=== PATIENT | female | born 1985 | race Caucasian/White ===

== ENCOUNTER 2023-06-10 10:04 | Emergency (ER) | payer OTHER, SELFPAY ==
[2023-06-10 10:11] VITALS: BP 105/73; PULSE 86; RESP 18; TEMP 36.7; O2SAT 96; BMI 25.8
--- NOTE | 2023-06-10 10:17 | PC.NURSE ---
PT STATES WOKE UP THIS MORNING WITH BLOOD ON HER PILLOW FROM RIGHT EAR. PT DENIES PAIN OR LOSS OF HEARING TO RIGHT EAR BUT STATES LEFT EAR HAS A LOT OF PRESSUREE. PT TESTED POSITIVE FOR COVID 5 DAYS AGO
--- NOTE | 2023-06-10 10:31 | ED_ITS ---
HPI - Ear Problem General Chief complaint: Ear Stated complaint: EAR PAIN Time Seen by Provider: 06/10/23 10:31 Source: patient Mode of arrival: walk-in Limitations: no limitations History of Present Illness HPI Narrative: patient here complaining of blood coming out of her right ear. Over the last several days she has not had earache pressure congestion. However five days ago she did test positive for Covid. She didn't get terribly ill but she did have just a slight amount of congestion but no earache or headache. She is afebrile. She's not on any antibiotics. She has not been swimming snorkeling scuba diving. She's not had any recent flights or barotrauma. Otherwise no complaints Related Data Allergies Allergy/AdvReac Type Severity Reaction Status Date / Time No Known Drug Allergies Allergy Verified 06/10/23 10:10 [facility] Social History Smoking status: Never smoker Exam Narrative Exam Narrative: overall examination is normal she's afebrile. Problem focused examination shows her left tympanic membrane be normal in appearance with no dullness or discoloration. At the bottom her right tympanic membrane there is a couple drops of blood and behind the tympanic membrane it sacrad radiation blue-collar consistent with hemotympanum. There is no bullae or obvious perforation. The external canal appears normal. The rest HEENT examination is normal. Airways normal no nasal congestion she has no cough congestion or shortness of breath or pulmonary complaints. Constitutional Vital Signs, click to edit/add: Last Vital Signs Temp 98.1 F 06/10/23 10:11 Pulse 86 06/10/23 10:11 Resp 18 06/10/23 10:11 BP 105/73 06/10/23 10:11 Pulse Ox 96 06/10/23 10:11 O2 Del Method Room Air 06/10/23 10:11 Course Vital Signs Vital signs: Vital Signs Temperature 98.1 F 06/10/23 10:11 Pulse Rate 86 06/10/23 10:11 Respiratory Rate 18 06/10/23 10:11 Blood Pressure 105/73 06/10/23 10:11 Pulse Oximetry 96 06/10/23 10:11 Oxygen Delivery Method Room Air 06/10/23 10:11 Temperature 98.1 F 06/10/23 10:11 Pulse Rate 86 06/10/23 10:11 Respiratory Rate 18 06/10/23 10:11 Blood Pressure 105/73 06/10/23 10:11 Pulse Oximetry 96 06/10/23 10:11 Oxygen Delivery Method Room Air 06/10/23 10:11 Medical Decision Making MDM Narrative Medical decision making narrative: patient was asymptomatic perforation right tympanic membrane status post Covid. She is to keep the ear dry at all times no flying, no swimming or scuba diving. She we placed him on Augmentin for seven days. She's not to clean the ear. She should follow up with ENT in 10-14 days Discharge Plan Discharge Chief Complaint: Ear Clinical Impression: Hematotympanum of right ear Patient Disposition: Home, Self-Care Time of Disposition Decision: 10:34 Additional Instructions: Augmentin for seven days/follow-up with ENT in 10-14 days to recheck the eardrum Stand Alone Forms: Portal Instructions Referrals: Physician,Non-Staff, MD [Primary Care Provider] - 1 week
== END 2023-06-10 10:52 | disposition home or self-care (01) ==
PROVIDERS: Emergency Provider Emergency Medicine Emergency Medical Services; PCP Family Medicine
DX: H73.891 Other specified disorders of tympanic membrane, right ear (principal); Z86.16 Personal history of COVID-19
CPT/HCPCS: 99283

== ENCOUNTER 2023-07-11 15:56 | Outpatient (OUT) | payer OTHER, SELFPAY ==
--- NOTE | 2023-07-11 16:12 | XR_ITS ---
The [address] [address] Patient Name: KAMAR CONDON MRN: [id number] date: 1985 Sex: F Assigned Patient Location: LAB Current Patient Location: Accession/Order Number: [id number] Exam Date: 07/11/2023 16:15 Report Date: 07/12/2023 07:15 At the request of: NATALIE DE ANDA Procedure: XR knee ITZ 3V EXAMINATION: XR knee ITZ 3V HISTORY: arthralgia M25.50 COMPARISON: No relevant comparison available. FINDINGS: RIGHT FINDINGS: BONES: Normal. No significant arthropathy or acute abnormality. SOFT TISSUES: Negative. No visible soft tissue swelling. OTHER: Negative. LEFT FINDINGS: BONES: Normal. No significant arthropathy or acute abnormality. SOFT TISSUES: Negative. No visible soft tissue swelling. OTHER: Negative. XR/XR knee ITZ 3V IMPRESSION: RIGHT CONCLUSION: No acute abnormality LEFT CONCLUSION: No acute abnormality Electronically authenticated by: RAF MITCHELL Date: 07/12/2023 07:15
[2023-07-11 16:22] LABS: Basophils Absolute Auto 0.1 10^3/uL (0.0-0.1); Basophils Percent Auto 0.8 % (0.2-2.0); Eosinophils Absolute Auto 0.2 10^3/uL (0.0-0.7); Eosinophils Percent Auto 2.9 % (0.9-7.0); Hematocrit 39.6 % (36.0-48.0); Hemoglobin 12.9 g/dL (12.0-16.0); Immature Granulocytes Abs Auto 0.01 10^3/uL (0.00-0.03); Immature Granulocytes Pct Auto 0.2 % (0.0-0.5); Lymphocytes Absolute Auto 2.3 10^3/uL (1.2-3.8); Lymphocytes Percent Auto 34.9 % (20.5-60.0); Mean Corpuscular HGB Conc 32.6 g/dL (29.9-35.2); Mean Corpuscular Hemoglobin 31.7 pg (26.7-34.0); Mean Corpuscular Volume 97.3 fL (81.0-99.0); Mean Platelet Volume 10.4 fL (9.5-13.5); Monocytes Absolute Auto 0.5 10^3/uL (0.3-0.8); Monocytes Percent Auto 7.7 % (1.7-12.0); Neutrophils Absolute Auto 3.6 10^3/uL (1.4-6.5); Neutrophils Percent Auto 53.5 % (43.0-75.0); Platelet Count 248 10^3/uL (150-450); Red Blood Count 4.07 10^6/uL (4.20-5.40); Red Cell Distribution Width 11.9 % (11.0-15.0); White Blood Count 6.6 10^3/uL (4.0-11.0)
[2023-07-11 16:25] LABS: Erythrocyte Sedimentation Rate 1 mm/hr (<=20)
[2023-07-11 17:01] LABS: Estimated Average Glucose 91 mg/dL; Glycohemoglobin A1C 4.8 % (4.5-6.2)
[2023-07-11 17:22] LABS: Alanine Aminotransferase 15 U/L (14-59); Albumin Globulin Ratio 1.2; Albumin Level 3.7 g/dL (3.4-5.0); Alkaline Phosphatase 42 U/L (46-116); Anion Gap 11.5; Aspartate Amino Transferase 9 U/L (15-37); BUN Creatinine Ratio 11.6; Bilirubin Total 0.4 mg/dL (0.2-1.0); Calcium 8.5 mg/dL (8.5-10.1); Chloride 105 mmol/L (98-107); Chol HDL Ratio 2.6; Cholesterol 141 mg/dL (<=200); Estimated GFR (African America >60 (>=60); Estimated GFR (Non-African Ame >60 (>=60); Free T3 2.05 pg/mL (2.18-3.98); Globulin 3.2 g/dL; Glucose 114 mg/dL (74-106); HDL Cholesterol 55 mg/dL (40-60); LDL Cholesterol Calculated 75.4 mg/dL; Potassium 3.5 mmol/L (3.5-5.1); Sodium 142 mmol/L (136-145); Total Protein 6.9 g/dL (6.4-8.2); Triglycerides 53 mg/dL (<=150); VLDL CHOLESTEROL 10.6 mg/dL
[2023-07-11 17:32] LABS: C Reactive Protein <0.50 mg/dL (<=0.50)
[2023-07-13 06:08] LABS: Antistreptolysin O Ab 90.6 IU/mL (0.0-200.0); Rheumatoid Factor (RF) <10.0 IU/mL (<14.0)
[2023-07-13 09:09] LABS: Insulin 13.2 uIU/mL (2.6-24.9)
[2023-07-14 16:09] LABS: Antinuclear Antibodies, IFA Positive (.)
== END 2023-07-11 15:57 | disposition home or self-care (01) ==
LOC: LAB 15:58
PROVIDERS: PCP Family Medicine; Visit Provider Family Medicine
DX: Z00.00 Encounter for general adult medical examination without abnormal findings (principal); E78.5 Hyperlipidemia, unspecified; R73.09 Other abnormal glucose; M25.50 Pain in unspecified joint
CPT/HCPCS: 36415; 73562; 80053; 80061; 83036; 83525; 84436; 84443; 84481; 84550; 85025; 85652; 86038; 86060; 86140; 86431

== ENCOUNTER 2023-09-13 17:38 | Emergency (ER) | payer OTHER, SELFPAY ==
[2023-09-13 18:00] VITALS: BP 124/85; PULSE 105; TEMP 36.8; O2SAT 100; BMI 25.0
--- NOTE | 2023-09-13 18:13 | PC.NURSE ---
Swelling naz left cheek, unsure of which tooth is causing it
[2023-09-13] MEDS: BENZOCAINE 30 ML, lidocaine HCL 15 ML MM (18:20)
--- NOTE | 2023-09-13 18:26 | ED.DENTAL1 ---
HPI - Dental/Oral General Chief complaint: Dental/Oral Stated complaint: Dental pain Time Seen by Provider: 09/13/23 18:05 Source: patient Mode of arrival: walk-in Limitations: no limitations History of Present Illness HPI Narrative: Patient is a 38-year-old female who presents to the emergency department for left maxillary swelling she attributes to a dental abscess. Swelling began today. She has had no drainage, fevers or vomiting. She is not concerned for . She does not smoke. No medications taken prior to arrival. Related Data Previous Rx's ?Medication ?Instructions ?Recorded clindamycin HCl 150 mg capsule 300 mg (2 x 150 mg) PO Q6H 10 days 09/13/23 #80 caps ketorolac 10 mg tablet 10 mg PO TID PRN pain #10 tabs 09/13/23 Allergies Allergy/AdvReac Type Severity Reaction Status Date / Time No Known Drug Allergies Allergy Verified 06/10/23 10:10 Review of Systems ROS Constitutional Denies: fever or chills Ears, nose, mouth, and throat Reports: mouth pain; Denies: throat pain or nasal congestion Gastrointestinal Denies: nausea or vomiting Integumentary/Breast Denies: rash Neurological Denies: headache PFSH PFSH Social History Smoking status: Never smoker Exam Narrative Exam Narrative: Gen.: Awake, alert, in no distress Head: Normocephalic, atraumatic ENT: Moist mucous membranes, Left maxillary swelling with no visible dental caries or drainage inside the mouth. Airway widely open and patent. No redness or swelling under the tongue Respiratory: No respiratory distress Cardio: Regular rate and rhythm Extremities: Moves extremities equally Psych: Normal mood and affect Neuro: No focal neuro deficit Skin: Warm, dry, intact Constitutional Vital Signs, click to edit/add: Last Vital Signs Temp 98.2 F 09/13/23 18:00 Pulse 105 H 09/13/23 18:00 Resp 18 09/13/23 18:00 BP 124/85 09/13/23 18:00 Pulse Ox 100 09/13/23 18:00 O2 Del Method Room Air 09/13/23 18:00 Course Vital Signs Vital signs: Vital Signs Temperature 98.2 F 09/13/23 18:00 Pulse Rate 105 H 09/13/23 18:00 Respiratory Rate 18 09/13/23 18:00 Blood Pressure 124/85 09/13/23 18:00 Pulse Oximetry 100 09/13/23 18:00 Oxygen Delivery Method Room Air 09/13/23 18:00 Temperature 98.2 F 09/13/23 18:00 Pulse Rate 105 H 09/13/23 18:00 Respiratory Rate 18 09/13/23 18:00 Blood Pressure 124/85 09/13/23 18:00 Pulse Oximetry 100 09/13/23 18:00 Oxygen Delivery Method Room Air 09/13/23 18:00 MDM - Dental/Oral MDM Narrative Medical decision making narrative: Treated for dental abscess with topical analgesia, clindamycin and NSAIDs for home. Follow-up with PCP and return to the ER if symptoms change or worsen. She states she does have a dentist. Medical Records Attestation: I reviewed the patient's medical records. Discharge Plan Discharge Stand Alone Forms: Portal Instructions Chief Complaint: Dental/Oral Clinical Impression: Dental abscess Patient Disposition: Home, Self-Care Time of Disposition Decision: 18:29 Condition: Good Prescriptions / Home Meds: New clindamycin HCl 150 mg capsule 300 mg PO Q6H 10 Days Qty: 80 0RF ketorolac 10 mg tablet 10 mg PO TID PRN (Reason: pain) Qty: 10 0RF Print Language: Emirati Instructions: Dental Abscess (ED) Additional Instructions: Follow up with your dentist Referrals: Gera Neves MD [Primary Care Provider] - 1 week
== END 2023-09-13 18:50 | disposition home or self-care (01) ==
PROVIDERS: Emergency Provider Emergency Medicine; PCP Family Medicine
DX: K04.7 Periapical abscess without sinus (principal)
CPT/HCPCS: 99283

== ENCOUNTER 2023-10-20 13:42 | Outpatient (OUT) | payer OTHER, SELFPAY ==
--- OUTSIDE RECORDS SUMMARY | 2023-10-20 13:52 | XMS_ITS | CCD ---
Author Organization [facility] ion [facility] Care Team Providers Care Recorder Of Deeds Name Role Phone Gera Neves Primary Care Physician [phone] NEETU, DR ESTRADA Primary Care Unavailable NEETU, DR ESTRADA Admitting Unavailable NEETU, DR ESTRADA Attending Unavailable NEETU, DR ESTRADA Consulting Unavailable PAULA, DR RAF Rooney Consulting Unavailable NEETU, DR ESTRADA Primary Care Unavailable WEST, DR RAF Rooney Admitting Unavailable WEST, DR RAF Rooney Attending Unavailable WEST, DR RAF Rooney Consulting Unavailable NEETU, DR ESTRADA Primary Care Unavailable WEST, DR RAF Rooney Admitting Unavailable WEST, DR RAF Rooney Attending Unavailable NEETU, DR ESTRADA Primary Care Unavailable HANNAH, DR THOMPSON Admitting Unavailable KARCLAUDIA, DR THOMPSON Attending Unavailable HANNAH, DR THOMPSON Consulting Unavailable NEETU, DR ESTRADA Primary Care Unavailable NEETU, DR ESTRADA Admitting Unavailable NEETU, DR ESTRADA Attending Unavailable NEETU, DR ESTRADA Consulting Unavailable MD Gera Neves Primary Care Provider [phone] MD Agustin Kim Attending Provider [phone] Ronald Alcazar Attending Unavailable Ronald Alcazar Admitting Unavailable Gera Neves Primary Care Unavailable Medications Current Medications Medication Drug Class(es) Dates Sig (Normalized) Sig (Original) acetaminophen 325 mg / HYDROcodone bitartrate 5 mg oral tablet (1 source) Opioid Agonist Start: 06-03-2022 take 1 tablet by mouth every six hours Hydrocodone-Acetam inophen Active 1 TAB PO Q6H 40 7 June 03, 2022 24 hr buPROPion hydrochloride 150 mg extended release oral tablet (1 source) Aminoketone Start: 06-03-2022 take 450 mg by mouth once daily Bupropion Hcl Active 450 MG PO Daily June 03, 2022 12:00am citalopram 20 mg oral tablet (1 source) Serotonin Reuptake Inhibitor Start: 04-11-2020 take 1 tablet by mouth once daily CeleXA 20 mg Tab 20 mg = 1 tab(s), Oral, Daily, Refills(s) 0 Start Date: 04/11/20 Status: Ordered dexamethasone 6 mg oral tablet (1 source) Corticosteroid Start: 04-11-2020 take 1 tablet by mouth once daily dexamethasone 6 mg oral tablet 6 mg = 1 tab(s), Oral, Daily, Refills(s) 0 Start Date: 04/11/20 Status: Ordered levoFLOXacin 750 mg oral tablet (1 source) Quinolone Antimicrobial Start: 04-11-2020 take 1 tablet by mouth every twenty-four hours Levaquin 750 mg Tab 750 mg = 1 tab(s), Oral, q24hr, Refills(s) 0 Start Date: 04/11/20 Status: Ordered methocarbamol 500 mg oral tablet (1 source) Muscle Relaxant Start: 05-09-2021 take 2 tablets by mouth four times daily Robaxin 500 mg Tab See Instructions, 2 tab(s) Oral QID 7 day(s), # 14 tab(s), Refills(s) 0 Start Date: 05/09/21 Status: Ordered naproxen 500 mg oral tablet (1 source) Nonsteroidal Anti-inflammatory Drug Start: 05-09-2021 take 1 tablet by mouth twice daily as needed for pain Naprosyn 500 mg Tab 500 mg = 1 tab(s), Oral, BID, PRN for pain, # 20 tab(s), Refills(s) 0 Start Date: 05/09/21 Status: Ordered ondansetron 4 mg oral tablet (1 source) Serotonin-3 Receptor Antagonist Start: 05-09-2021 take 1 tablet by mouth every eight hours as needed for nausea Zofran 4 mg Tab 4 mg = 1 tab(s), Oral, q8hr, PRN Nausea/Vomiting, # 12 tab(s), Refills(s) 0 Start Date: 05/09/21 Status: Ordered rizatriptan 10 mg oral tablet (1 source) Serotonin-1b and Serotonin-1d Receptor Agonist Start: 04-11-2020 take 1 tablet by mouth once daily as needed for headache Maxalt 10 mg Tab 10 mg = 1 tab(s), Oral, Daily, PRN Headache, Refills(s) 0 Start Date: 04/11/20 Status: Ordered traZODone hydrochloride 100 mg oral tablet (1 source) Serotonin Reuptake Inhibitor Start: 06-03-2022 take 100 mg by mouth once daily at bedtime Trazodone Active 100 MG PO Daily at bedtime June 03, 2022 12:00am Problems Active Problems Problem Classification Problem Date Documented Date Episodic/Chronic Coagulation and hemorrhagic disorders (1 source) Spontaneous ecchymoses; Translations: [SPONTANEOUS ECCHYMOSES] Onset: 11-05-2021 Episodic Headache; including migraine (1 source) Migraine 08-10-2013 Chronic Headache; including migraine (1 source) Headache; Translations: [Headache, unspecified] Onset: 09-06-2021 Episodic Immunizations and screening for infectious disease (1 source) Encounter for screening for human papillomavirus (HPV); Translations: [ENC SCREENING HUMAN PAPILLOMAVIRUS] Onset: 08-10-2021 Episodic Malaise and fatigue (4 sources) Other fatigue; Translations: [OTHER FATIGUE] Onset: 10-30-2021 Episodic Other injuries and conditions due to external causes (1 source) Injury of head; Translations: [Unspecified injury of head, initial encounter] Onset: 09-06-2021 Episodic Other screening for suspected conditions (not mental disorders or infectious disease) (4 sources) Encounter for screening for malignant neoplasm of cervix; Translations: [ENC SCREENING MALIG NEOPLASM CERV] Onset: 08-07-2021 Episodic Residual codes; unclassified (1 source) Patient encounter status; Translations: [Encounter for cosmetic surgery] 06-03-2022 Episodic Unclassified (1 source) Pain in right knee; Translations: [Pain in right knee] Onset: 07-28-2023 Past or Other Problems Problem Classification Problem Date Documented Da te Episodic/Chronic Other non-traumatic joint disorders (4 sources) Pain in left hip; Translations: [PAIN IN LEFT HIP] Onset: 12-03-2020 Episodic Results Test Name Value Interpretation Reference Range Facility [facility] Antinuclear Antibodieson 07-28-2023 Antinuclear Abs, IFA Positive Critically abnormal . [facility] Comment on above: Result Comment: Nega tive <1:80 Borderline 1:80 Positive >1:80 Performed By: #### T 4F, CBC, CK, TSH3, ADDONUAPLUS, CRP, ESR, CMP #### [facility] [address] [place] [address] [place] #### ALDOLASE #### [facility] , Homogeneous Pattern 1:320 High . [facility] Comment on above: Result Comment: ICAP nomenclature: [id number] Performed By: #### T 4F, CBC, CK, TSH3, ADDONUAPLUS, CRP, ESR, CMP #### [facility] [address] [place] [address] [place] #### ALDOLASE #### [facility] , Note 1 Normal . [facility] Comment on above: Result Comment: Arline meek Potential Disease Association Homogeneous Systemic Lupus Erythematosus, Drug Induced Systemic Lupus Erythematosus, Chronic Autoimmune hepatitis, Juvenile Idiopathic Arthritis Speckled Sjogren Syndrome, Systemic Lupus Erythematosus, Subacute Cutaneous Lupus, Lupus, Congenital Heart Block, Mixed Connective Tissue Disease, Scleroderma-diffuse, Scleroderma-Autoimmune Myositis Overlap Syndrome, Systemic Lupus Wgbvjhxhfmbph-Mnorhazofsw-Inekrbboym Myositis Overlap Syndrome, Systemic Autoimmune Rheumatic Disease, Undifferentiated Connective Tissue Disease Nucleolar Systemic Sclerosis, Scleroderma-Autoimmune Myositis Overlap Syndrome, Sjogren Syndrome, Raynaud phenomenon, Pulmonary Arterial Hypertension, Systemic Autoimmune Rheumatic Disease, Cancer Centromere Scleroderma-CREST, Limited Cutaneous SSc, Raynaud's Phenomenon, Primary Biliary Cholangitis Nuclear Dot Primary Biliary Cholangitis Nuclear Primary Biliary Cholangitis, Autoimmune Membrane Hepatitis/Liver disease, Systemic Autoimmune Rheumatic Disease, Autoimmune Cytopenias, Linear Scleroderma, Antiphospholipid Syndrome Performed at: [place] [address] Truss Puller Helper: Juan Simmons PhD, Phone: [phone] Performed By: #### T 4F, CBC, CK, TSH3, ADDONUAPLUS, CRP, ESR, CMP #### [address] #### ALDOLASE #### [facility] , Aldolaseon 07-28-2023 Aldolase 4.6 U/L Normal 3.3-10.3 [facility] Comment on above: Result Comment: Perf ormed at: [facility] [place] [address] Truss Puller Helper: Juan Simmons PhD, Phone: [phone] PERFORMED BY: [place] [address] PATHOLOGIST INVASIVE MANAGER RA CORTEZ M.D. Performed By: #### T 4F, CBC, CK, TSH3, ADDONUAPLUS, CRP, ESR, CMP #### [address] #### ALDOLASE #### [facility] , Antithyroglobulin Abon Antithyroglobulin Ab <1.0 Normal 0.0-0.9 [facility] Comment on above: Result Comment: Thyr oglobulin Antibody measured by Karime Erik Methodology It should be noted that the presence of thyroglobulin antibodies may not be pathogenic nor diagnostic, especially at very low levels. The assay veterinary technician has found that four percent of individuals without evidence of thyroid disease or autoimmunity will have positive TgAb levels up to 4 IU/mL. Performed at: [employer] [id number] Truss Puller Helper: Juan Simmons PhD, Phone: [phone] Performed By: #### T 4F, CBC, CK, TSH3, ADDONUAPLUS, CRP, ESR, CMP #### [address] #### ALDOLASE #### [facility] , C-Reactive Proteinon 024 CRP [Mass/Vol] mg/L Normal 0.0-0.5 [facility] Comment on above: Performed By: #### T 4F, CBC, CK, TSH3, ADDONUAPLUS, CRP, ESR, CMP #### [address] #### ALDOLASE #### [facility] , Chromatin Antibodyon 024 Chromatin Antibody <0.2 Normal 0.0-0.9 [facility] Comment on above: Result Comment: Perf ormed at: [facility] [employer] [id number] Truss Puller Helper: Juan Simmons PhD, Phone: [phone] PERFORMED BY: [place] [address] PATHOLOGIST INVASIVE MANAGER RA CORTEZ M.D. Performed By: #### T 4F, CBC, CK, TSH3, ADDONUAPLUS, CRP, ESR, CMP #### [place] [address] [place] #### ALDOLASE #### [facility] , Coagulation Profileon 2023 aPTT Coag (Bld) [Time] 24.4 s Low 25.1-36.5 [facility] Comment on above: Result Comment: A he matocrit value greater than 55% may lead to inaccurate results in coagulation testing. Patients having hematocrit values >55% require a special collection tube for coagulation studies. Please contact the laboratory at [phone] for redraw instructions. PERFORMED BY: [place] [address] PATHOLOGIST INVASIVE MANAGER RA CORTEZ M.D. Performed By: #### T 4F, CBC, CK, TSH3, ADDONUAPLUS, CRP, ESR, CMP #### [address] #### ALDOLASE #### [facility] , INR Coag (PPP) [Relative time] 1.0 {INR} Normal [facility] Comment on above: Result Comment: INR Therapeutic Range A) Pre- and Peroperative OAT started two weeks before surgery. NOT HIP SURGERY: 1.5 - 2.5 HIP SURGERY: 2 - 3 B) Primary and secondary prevention of venous THROMBOSIS: 2 - 3 C) Active venous thrombosis, pulmonary embolism and prevention of recurrent venous thrombosis: 2 - 3 D) Prevention of arterial thromboembolism including patients with mechanical heart valves: 3 - 4.5 Performed By: #### T 4F, CBC, CK, TSH3, ADDONUAPLUS, CRP, ESR, CMP #### [place] [address] [place] #### ALDOLASE #### [facility] , PT Coag (PPP) [Time] 11.1 s Normal 9.0-12.9 [facility] Comment on above: Result Comment: A he matocrit value greater than 55% may lead to inaccurate results in coagulation testing. Patients having hematocrit values >55% require a special collection tube for coagulation studies. Please contact the laboratory at [phone] for redraw instructions. Performed By: #### T 4F, CBC, CK, TSH3, ADDONUAPLUS, CRP, ESR, CMP #### [facility] [address] [place] [address] #### ALDOLASE #### [facility] , Complement C3on 07-28-2023 Complement C3 127 mg/dL Normal 82-167 [facility] Comment on above: Result Comment: Perf ormed at: [place] [id number] Truss Puller Helper: Juan Simmons PhD, Phone: [phone] Performed By: #### T 4F, CBC, CK, TSH3, ADDONUAPLUS, CRP, ESR, CMP #### [facility] [address] [place] [address] #### ALDOLASE #### [facility] , Complement C4on 07-28-2023 Complement C4 29 mg/dL Normal 12-38 [facility] Comment on above: Performed By: #### T 4F, CBC, CK, TSH3, ADDONUAPLUS, CRP, ESR, CMP #### [facility] [address] [place] [address] #### ALDOLASE #### [facility] , Complement Total (CH50)on Complement Total (CH50) 48 Normal >41 [facility] Comment on above: Result Comment: Age Male Female 1 - 30 days Not Estab. Not Estab. 31 days - 6 months >32 >20 7 months - 17 years >39 >39 >17 years >41 >41 NOTE: The adult ( >17 years ) reference interval range is used to flag abnormals on this report. If the patient is 17 years old or younger, use the table above to determine out of range values. Performed at: [address] [id number] Truss Puller Helper: Juan Simmons PhD, Phone: [phone] PERFORMED BY: [place] [address] PATHOLOGIST INVASIVE MANAGER RA CORTEZ M.D. Performed By: #### T 4F, CBC, CK, TSH3, ADDONUAPLUS, CRP, ESR, CMP #### [place] [address] [place] #### ALDOLASE #### [facility] , Complete Blood Count Auto Di ffon 07-28-2023 Basophils (Bld) [#/Vol] 0.0 10*3/uL Normal 0.0-0.2 [facility] Comment on above: Performed By: #### T 4F, CBC, CK, TSH3, ADDONUAPLUS, CRP, ESR, CMP #### [place] [address] [place] #### ALDOLASE #### [facility] , Basophils/100 WBC (Bld) 0.8 % Normal . [facility] Comment on above: Performed By: #### T 4F, CBC, CK, TSH3, ADDONUAPLUS, CRP, ESR, CMP #### [address] #### ALDOLASE #### [facility] , Eosinophils (Bld) [#/Vol] 0.1 10*3/uL Normal 0.0-0.45 [facility] Comment on above: Performed By: #### T 4F, CBC, CK, TSH3, ADDONUAPLUS, CRP, ESR, CMP #### [place] [address] [place] #### ALDOLASE #### [facility] , Eosinophils/100 WBC (Bld) 2.0 % Normal . [facility] Comment on above: Performed By: #### T 4F, CBC, CK, TSH3, ADDONUAPLUS, CRP, ESR, CMP #### [place] [address] [place] #### ALDOLASE #### [facility] , Erythrocyte distribution width (RBC) [Ratio] 12.1 % Normal 11.9-15.3 [facility] Comment on above: Performed By: #### T 4F, CBC, CK, TSH3, ADDONUAPLUS, CRP, ESR, CMP #### [place] [address] [place] #### ALDOLASE #### [facility] , Hematocrit (Bld) [Volume fraction] 39.9 % Normal 34.0-46.4 [facility] Comment on above: Performed By: #### T 4F, CBC, CK, TSH3, ADDONUAPLUS, CRP, ESR, CMP #### [address] #### ALDOLASE #### [facility] , Hemoglobin (Bld) [Mass/Vol] 13.3 g/dL Normal 11.8-15.4 [facility] Comment on above: Performed By: #### T 4F, CBC, CK, TSH3, ADDONUAPLUS, CRP, ESR, CMP #### [address] #### ALDOLASE #### [facility] , Lymphocytes (Bld) [#/Vol] 2.0 10*3/uL Normal 1.00-4.8 [facility] Comment on above: Performed By: #### T 4F, CBC, CK, TSH3, ADDONUAPLUS, CRP, ESR, CMP #### [facility] [address] [place] [address] [place] #### ALDOLASE #### [facility] , Lymphocytes/100 WBC (Bld) 34.0 % Normal . [facility] Comment on above: Performed By: #### T 4F, CBC, CK, TSH3, ADDONUAPLUS, CRP, ESR, CMP #### [place] [address] [place] #### ALDOLASE #### [facility] , MCH (RBC) [Entitic mass] 31.3 pg Normal 24.7-34.3 [facility] Comment on above: Performed By: #### T 4F, CBC, CK, TSH3, ADDONUAPLUS, CRP, ESR, CMP #### [facility] [address] [place] [address] #### ALDOLASE #### [facility] , MCV (RBC) [Entitic vol] 94.0 fL Normal 80-100 [facility] Comment on above: Performed By: #### T 4F, CBC, CK, TSH3, ADDONUAPLUS, CRP, ESR, CMP #### [facility] [address] [place] [address] #### ALDOLASE #### [facility] , Mean Corpuscular HGB Conc 33.3 g/dL Normal 32.0-35.0 [facility] Comment on above: Performed By: #### T 4F, CBC, CK, TSH3, ADDONUAPLUS, CRP, ESR, CMP #### [facility] [address] [place] [address] #### ALDOLASE #### [facility] , Monocytes (Bld) [#/Vol] 0.4 10*3/uL Normal 0.0-0.8 [facility] Comment on above: Performed By: #### T 4F, CBC, CK, TSH3, ADDONUAPLUS, CRP, ESR, CMP #### [facility] [address] [place] [address] #### ALDOLASE #### [facility] , Monocytes/100 WBC (Bld) 6.2 % Normal . [facility] Comment on above: Performed By: #### T 4F, CBC, CK, TSH3, ADDONUAPLUS, CRP, ESR, CMP #### [facility] [address] [place] [address] [place] #### ALDOLASE #### [facility] , Neutrophils (Bld) [#/Vol] 3.3 10*3/uL Normal 1.8-7.7 [facility] Comment on above: Performed By: #### T 4F, CBC, CK, TSH3, ADDONUAPLUS, CRP, ESR, CMP #### [facility] [address] [place] [address] [place] #### ALDOLASE #### [facility] , Neutrophils/100 WBC (Bld) 57.0 % Normal . [facility] Comment on above: Performed By: #### T 4F, CBC, CK, TSH3, ADDONUAPLUS, CRP, ESR, CMP #### [place] [address] [place] #### ALDOLASE #### [facility] , NRBC% 0.1 /100{WBC} Normal 0-0.5 [facility] Comment on above: Performed By: #### T 4F, CBC, CK, TSH3, ADDONUAPLUS, CRP, ESR, CMP #### [place] [address] [place] #### ALDOLASE #### [facility] , Platelet mean volume (Bld) [Entitic vol] 9.1 fL Normal 6.3-10.7 [facility] Comment on above: Performed By: #### T 4F, CBC, CK, TSH3, ADDONUAPLUS, CRP, ESR, CMP #### [address] #### ALDOLASE #### [facility] , Platelets (Bld) [#/Vol] 270 10*3/uL Normal 150-450 [facility] Comment on above: Performed By: #### T 4F, CBC, CK, TSH3, ADDONUAPLUS, CRP, ESR, CMP #### [facility] [address] [place] [address] [place] #### ALDOLASE #### [facility] , RBC (Bld) [#/Vol] 4.25 10*6/uL Normal 3.60-5.00 [facility] Comment on above: Performed By: #### T 4F, CBC, CK, TSH3, ADDONUAPLUS, CRP, ESR, CMP #### [facility] [address] [place] [address] #### ALDOLASE #### [facility] , WBC (Bld) [#/Vol] 5.8 10*3/uL Normal 3.8-11.6 [facility] Comment on above: Performed By: #### T 4F, CBC, CK, TSH3, ADDONUAPLUS, CRP, ESR, CMP #### [facility] [address] [place] [address] #### ALDOLASE #### [facility] , Comprehensive Metabolic Pane ashley 07-28-2023 Albumin [Mass/Vol] 4.8 g/dL Normal 3.5-5.7 [facility] Comment on above: Performed By: #### T 4F, CBC, CK, TSH3, ADDONUAPLUS, CRP, ESR, CMP #### [facility] [address] [place] [address] #### ALDOLASE #### [facility] , Albumin/Globulin [Mass ratio] 1.9 {ratio} Normal [facility] Comment on above: Performed By: #### T 4F, CBC, CK, TSH3, ADDONUAPLUS, CRP, ESR, CMP #### [facility] [address] [place] [address] #### ALDOLASE #### [facility] , ALP [Catalytic activity/Vol] 58 U/L Normal 34-104 [facility] Comment on above: Performed By: #### T 4F, CBC, CK, TSH3, ADDONUAPLUS, CRP, ESR, CMP #### [facility] [address] [place] [address] [place] #### ALDOLASE #### [facility] , ALT [Catalytic activity/Vol] 50 U/L Normal 7-52 [facility] Comment on above: Performed By: #### T 4F, CBC, CK, TSH3, ADDONUAPLUS, CRP, ESR, CMP #### [facility] [address] [place] [address] [place] #### ALDOLASE #### [facility] , Anion gap [Moles/Vol] 9.8 mmol/L Normal 6.0-15.0 [facility] Comment on above: Performed By: #### T 4F, CBC, CK, TSH3, ADDONUAPLUS, CRP, ESR, CMP #### [facility] [address] [place] [address] [place] #### ALDOLASE #### [facility] , AST [Catalytic activity/Vol] 32 U/L Normal 13-39 [facility] Comment on above: Performed By: #### T 4F, CBC, CK, TSH3, ADDONUAPLUS, CRP, ESR, CMP #### [facility] [address] [place] [address] #### ALDOLASE #### [facility] , Bilirubin [Mass/Vol] 0.5 mg/dL Normal 0.3-1.0 [facility] Comment on above: Performed By: #### T 4F, CBC, CK, TSH3, ADDONUAPLUS, CRP, ESR, CMP #### [facility] [address] [place] [address] [place] #### ALDOLASE #### [facility] , Calcium [Mass/Vol] 9.4 mg/dL Normal 8.6-10.3 [facility] Comment on above: Performed By: #### T 4F, CBC, CK, TSH3, ADDONUAPLUS, CRP, ESR, CMP #### [facility] [address] [place] [address] [place] #### ALDOLASE #### [facility] , Chloride [Moles/Vol] 103 mmol/L Normal 98-107 [facility] Comment on above: Performed By: #### T 4F, CBC, CK, TSH3, ADDONUAPLUS, CRP, ESR, CMP #### [facility] [address] [place] [address] [place] #### ALDOLASE #### [facility] , CO2 [Moles/Vol] 27.3 mmol/L Normal 21.0-31.0 [facility] Comment on above: Performed By: #### T 4F, CBC, CK, TSH3, ADDONUAPLUS, CRP, ESR, CMP #### [facility] [address] [place] [address] [place] #### ALDOLASE #### [facility] , Creatinine [Mass/Vol] 0.74 mg/dL Normal 0.60-1.20 [facility] Comment on above: Performed By: #### T 4F, CBC, CK, TSH3, ADDONUAPLUS, CRP, ESR, CMP #### [facility] [address] [place] [address] #### ALDOLASE #### [facility] , GFR/1.73 sq M.predicted MDRD (S/P/Bld) [Vol rate/Area] mL/min/{1.73_m2} [facility] Comment on above: Performed By: #### T 4F, CBC, CK, TSH3, ADDONUAPLUS, CRP, ESR, CMP #### [facility] [address] [place] [address] [place] #### ALDOLASE #### [facility] , Globulin (S) [Mass/Vol] 2.5 g/dL [facility] Comment on above: Performed By: #### T 4F, CBC, CK, TSH3, ADDONUAPLUS, CRP, ESR, CMP #### [facility] [address] [place] [address] [place] #### ALDOLASE #### [facility] , Glucose [Mass/Vol] 81 mg/dL Normal 70-100 [facility] Comment on above: Result Comment: [place] om Glucose Reference Range is dependent on time and content of last meal. Glucose of more than 200 mg/dL in a nonstressed, ambulatory subject supports the diagnosis of Diabetes Mellitus. ADA recommended reference range Performed By: #### T 4F, CBC, CK, TSH3, ADDONUAPLUS, CRP, ESR, CMP #### [facility] [address] [place] [address] #### ALDOLASE #### [facility] , Potassium [Moles/Vol] 4.1 mmol/L Normal 3.5-5.1 [facility] Comment on above: Performed By: #### T 4F, CBC, CK, TSH3, ADDONUAPLUS, CRP, ESR, CMP #### [facility] [address] [place] [address] #### ALDOLASE #### [facility] , Protein [Mass/Vol] 7.3 g/dL Normal 6.4-8.9 [facility] Comment on above: Performed By: #### T 4F, CBC, CK, TSH3, ADDONUAPLUS, CRP, ESR, CMP #### [facility] [address] [place] [address] [place] #### ALDOLASE #### [facility] , Sodium [Moles/Vol] 136 mmol/L Normal 136-145 [facility] Comment on above: Performed By: #### T 4F, CBC, CK, TSH3, ADDONUAPLUS, CRP, ESR, CMP #### [facility] [address] [place] [address] #### ALDOLASE #### [facility] , Urea nitrogen [Mass/Vol] 16 mg/dL Normal 7-25 [facility] Comment on above: Performed By: #### T 4F, CBC, CK, TSH3, ADDONUAPLUS, CRP, ESR, CMP #### [facility] [address] [place] [address] [place] #### ALDOLASE #### [facility] , Creatine Kinaseon 07-28-2023 CK [Catalytic activity/Vol] 69 U/L Normal 30-223 [facility] Comment on above: Result Comment: PERF ORMED BY: [address] [place] [address] PATHOLOGIST INVASIVE MANAGER RA CORTEZ M.D. Performed By: #### T 4F, CBC, CK, TSH3, ADDONUAPLUS, CRP, ESR, CMP #### [address] #### ALDOLASE #### [facility] , Dipstick and Microscopicon 0 07-28-2023 Appearance (U) Clear Normal Clear [facility] Comment on above: Order Comment: Name Collection Type:: Clean-Voided Midstream Performed By: #### T 4F, CBC, CK, TSH3, ADDONUAPLUS, CRP, ESR, CMP #### [address] #### ALDOLASE #### [facility] , Bacteria,Urine None Seen Normal None Seen [facility] Comment on above: Order Comment: Name Collection Type:: Clean-Voided Midstream Performed By: #### T 4F, CBC, CK, TSH3, ADDONUAPLUS, CRP, ESR, CMP #### [address] #### ALDOLASE #### [facility] , Bilirubin,Urine Negative Normal Negative [facility] Comment on above: Order Comment: Name Collection Type:: Clean-Voided Midstream Performed By: #### T 4F, CBC, CK, TSH3, ADDONUAPLUS, CRP, ESR, CMP #### [address] #### ALDOLASE #### [facility] , Color (U) Yellow Normal Yellow [facility] Comment on above: Order Comment: Name Collection Type:: Clean-Voided Midstream Performed By: #### T 4F, CBC, CK, TSH3, ADDONUAPLUS, CRP, ESR, CMP #### [facility] [address] [place] [address] #### ALDOLASE #### [facility] , Glucose Ql (U) Normal Normal Normal [facility] Comment on above: Order Comment: Name Collection Type:: Clean-Voided Midstream Performed By: #### T 4F, CBC, CK, TSH3, ADDONUAPLUS, CRP, ESR, CMP #### [facility] [address] [place] [address] #### ALDOLASE #### [facility] , Hyaline Casts,Urine 0-8 Normal 0-8 [facility] Comment on above: Order Comment: Name Collection Type:: Clean-Voided Midstream Result Comment: PERF ORMED BY: [place] [address] PATHOLOGIST INVASIVE MANAGER RA CORTEZ M.D. Performed By: #### T 4F, CBC, CK, TSH3, ADDONUAPLUS, CRP, ESR, CMP #### [facility] [address] [place] [address] #### ALDOLASE #### [facility] , Ketones Ql (U) Negative Normal Negative [facility] Comment on above: Order Comment: Name Collection Type:: Clean-Voided Midstream Performed By: #### T 4F, CBC, CK, TSH3, ADDONUAPLUS, CRP, ESR, CMP #### [facility] [address] [place] [address] #### ALDOLASE #### [facility] , Leukocyte esterase Test strip Ql (U) Negative Normal Negative [facility] Comment on above: Order Comment: Name Collection Type:: Clean-Voided Midstream Performed By: #### T 4F, CBC, CK, TSH3, ADDONUAPLUS, CRP, ESR, CMP #### [facility] [address] [place] [address] [place] #### ALDOLASE #### [facility] , Nitrite,Urine Negative Normal Negative [facility] Comment on above: Order Comment: Name Collection Type:: Clean-Voided Midstream Performed By: #### T 4F, CBC, CK, TSH3, ADDONUAPLUS, CRP, ESR, CMP #### [facility] [address] [place] [address] #### ALDOLASE #### [facility] , Occult Blood,Urine Negative Normal Negative [facility] Comment on above: Order Comment: Name Collection Type:: Clean-Voided Midstream Performed By: #### T 4F, CBC, CK, TSH3, ADDONUAPLUS, CRP, ESR, CMP #### [address] #### ALDOLASE #### [facility] , pH (U) 7.0 [pH] Normal 5.0-9.0 [facility] Comment on above: Order Comment: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 infection under section 564 (b) (1) of the Act, 21 U.S.C. 360 bbb-3 (b) (1), unless authorization is terminated or revoked sooner. Performed By: #### 2 [id number] ####[facility] [id number] [place] [address] SARS-CoV-2 (COVID-19) RNA MEHREEN+probe Ql (Unsp spec) Pass Normal Pass [facility] Comment on above: Performed By: #### 2 [id number] ####[facility] [id number] [place] [address] Specimen source Nom (Unsp spec) Nasal Normal [facility] Comment on above: Performed By: #### 2 [id number] ####[facility] [address] [place] [address] CT Abdomen/Pelvis w/ Contras ton 05-10-2021 CT Abdomen/Pelvis w/ Contrast Exam Date/Time: 05/09/2021 22:31 EST Reason for Exam: Flank pain, kidney stone suspected;Other (please specify) Report IMPRESSION: NO EVIDENCE OF ACUTE ABDOMINAL OR PELVIC PATHOLOGY. 1.9 CM RIGHT OVARIAN CYST, WITH A DOMINANT LESION VERSUS SUSPECTED. CLINICAL HISTORY: Flank pain, kidney stone suspected. COMMENT: Images were obtained following the administration of Intravenous contrast. The spleen is upper limits of normal size, but otherwise unremarkable. The liver, pancreas, gallbladder, adrenal glands, and kidneys are normal in appearance. The renal collecting systems are not dilated. No retroperitoneal lymphadenopathy is evident. The abdominal aorta is normal. No aneurysm is noted. Evaluation of bowel is limited. The bowel loops are not dilated, and there is no evidence of bowel obstruction. The appendix is unremarkable. There is some fecal material, fluid, and gas in the colon. Most of the colon is collapsed. There is no evidence of diverticulitis. No abdominal inflammatory complex nor free air is noted. The uterus is retroflexed. There is an IUD within the uterine fundus/body centrally. There are follicular ovarian cysts, including a dominant 1.9 cm right ovarian cyst. There is a minimal amount of free fluid in the pelvis. The urinary bladder is unremarkable. No pelvic mass nor pelvic lymphadenopathy is evident. There is grade 1 anterolisthesis at L5-S1, with bilateral L5 pars defects. There is interspace narrowing at L5-S1. All CT scans at this facility use dose modulation, iterative reconstruction, and/or weight based dosing when appropriate to reduce radiation dose to as low as reasonably achievable. FINAL REPORT Dictated: 05/10/2021 11:14 am Brett Choe M.D. Signed (Electronic Signature): 05/10/2021 11:14 am Signed by: Brett Choe M.D. Transcribed by: FOUZIA Technologist: STACIE Technical Comments GFR (mL/min/1/73m2) na Contrast: Isovue 300 Contrast amount in ml's: 100 Normal [facility] Discharge Instructionson Discharge Instructions [id number] CD:127 Normal [facility] ED Clinical Summaryon 2020 ED Clinical Summary (Inserted Image. Ruchi ble to display) [place] [id number] ED Clinical Summary Person Information Name: PAULINE LOPEZ [facility] Age: 35 Years : 1985 Sex: Female Language: Tanzanian PCP: Gera Neves MD Marital Status: Phone: [phone] Visit Id: Visit Reason: Back pain; BACK PAIN Speciality: Acuity: 3 Enc Type: Emergency Med Service: Emergency Arrival: 05/09/2021 20:12:01 Discharge: 05/09/2021 23:47:27 LOS: 000 03:35 Checkin: 05/09/2021 20:12:01 Checkout: 05/09/2021 23:47:27 Dispo Type: Home (Routine DC) EVENTS: Event Name Event Status Request Date/Time Start Date/Time Complete Date/Time Arrive Complete 05/09/2021 20:12:01 05/09/2021 20:12:01 05/09/2021 20:12:01 Document Home Meds Request 05/09/2021 20:12:01 Triage Complete 05/09/2021 20:12:01 05/09/2021 20:32:36 05/09/2021 20:32:36 Registration Complete 05/09/2021 20:14:01 05/09/2021 20:14:01 05/09/2021 20:14:01 Reg Complete Request 05/09/2021 20:14:01 Reg Bed Request Complete 05/09/2021 20:14:01 05/09/2021 20:14:01 05/09/2021 20:14:01 Bed Assign Complete 05/09/2021 20:24:03 05/09/2021 20:24:03 05/09/2021 20:24:03 Dr Exam Complete 05/09/2021 20:24:03 05/09/2021 20:25:24 05/09/2021 20:25:24 RN Exam Complete 05/09/2021 20:24:03 05/09/2021 21:00:48 05/09/2021 21:00:48 Registration Complete 05/09/2021 20:25:24 05/09/2021 20:29:52 05/09/2021 20:29:52 Patient Care Request 05/09/2021 20:32:37 Patient Isolation Request 05/09/2021 20:32:37 Meds Admin Request 05/09/2021 20:43:01 Pending Labs Complete 05/09/2021 20:43:01 05/09/2021 21:45:26 Lab Complete 05/09/2021 20:43:01 05/09/2021 21:45:26 Urine Collect Complete 05/09/2021 20:43:01 05/09/2021 21:45:26 Pending Labs Complete 05/09/2021 20:59:14 05/09/2021 20:59:14 05/09/2021 21:21:54 Lab Complete 05/09/2021 20:59:14 05/09/2021 20:59:14 05/09/2021 21:21:54 Pending Labs Complete 05/09/2021 21:08:32 05/09/2021 21:08:32 05/09/2021 21:08:39 Lab Complete 05/09/2021 21:08:32 05/09/2021 21:08:32 05/09/2021 21:08:39 Pending Labs Collected 05/09/2021 21:32:06 Lab Collected 05/09/2021 21:32:06 Pending Labs Complete 05/09/2021 21:48:10 05/09/2021 21:48:10 05/09/2021 21:48:11 CT Complete 05/09/2021 21:58:29 05/09/2021 22:29:48 05/09/2021 22:31:39 Discharge Complete 05/09/2021 23:04:08 05/09/2021 23:47:40 05/09/2021 23:47:40 Transfer Complete 05/09/2021 23:47:40 05/09/2021 23:47:40 05/09/2021 23:47:40 ADDRESS: [address] [place] [phone] PHYS DOC NOTES: MEDICAL INFORMATION: Prescriptions Given: New Medications Printed Prescriptions methocarbamol (Robaxin 500 mg Tab) 2 tab(s) Oral QID 7 day(s). Refills: 0. naproxen (Naprosyn 500 mg Tab) 1 Tablets By Mouth 2 times a day as needed for pain. Refills: 0. ondansetron (Zofran 4 mg Tab) 1 Tablets By Mouth every 8 hours as needed Nausea/Vomiting. Refills: 0. Medications to Continue with No Changes Other Medications citalopram (CeleXA 20 mg Tab) 1 Tablets By Mouth every day. dexamethasone (dexamethasone 6 mg oral tablet) 1 Tablets By Mouth every day. levofloxacin (Levaquin 750 mg Tab) 1 Tablets By Mouth every 24 hours. rizatriptan (Maxalt 10 mg Tab) 1 Tablets By Mouth every day as needed Headache. PATIENT EDUCATION INFORMATION: Instructions: Back Exercises, Wtzl-cq-Pesu; Acute Back Pain, Adult Follow up: With: Address: When: Gera Neves [address] [place] [address], [address] [place] [phone] Business (1) In 3 days 05/12/2021 DIAGNOSIS: Bilateral back pain Normal [facility] ED Note-Nursingon 05-10-2021 ED Note-Nursing In X-ray Normal [facility] ED Note-Physicianon 05-10-20 ED Note-Physician Basic Information Time Seen: Marcio Woodall DO 05/09/2021 20:25 Chief Complaint Back pain that radiates to abdomen. Nausea History of Present Illness Patient is a 35-year-old female presenting to the ED for evaluation of right-sided flank pain with radiation to her abdomen. Patient states the pain started 3 to 4 days ago, is progressively worsened. States it radiates around and causes nausea. Patient denies fevers, chills, dizziness or lightheadedness, urinary symptoms. Is concerned about possible pyelonephritis. Patient also has been exposed to Covid with her boyfriend and her son both having symptoms. Review of Systems General: Denied fever, chills, weight loss HEENT: Denied Congestion, rhinorrhea, sore throat Cardiac: Denied Chest pain, palpitations, dizziness/lightheadedne ss Respiratory: Denied Dyspnea, cough Abdominal: Denied abdominal pain, vomiting, diarrhea, constipation, + right flank pain, nausea : Denied dysuria, hematuria Extremities: Denied leg swelling, leg pain, calf tenderness Neuro: Denied Focal neurologic deficits, vision changes, difficulty with speech Integumentary: Denied rashes or lesions Physical Exam Vitals & Measurements T: 36.7 ?C(Oral) HR: 83(Peripheral) RR: 16 BP: 126/79 SpO2: 100% HT: 163 cm HT: 163.0 cm WT: 68.1 kg WT: 68.1 kg BMI: 25.63 General: Well developed, non toxic appearing, no acute distress HEENT: Head atraumatic, Mucosa moist, hearing grossly normal Neck: No JVD, tracheal deviation Cardiac: Regular rate, rhythm, no murmurs, or gallops, 2+ radial pulses Respiratory: Lungs clear to auscultation B/L, normal respiratory effort Abdomen: Soft non tender, no rebound or guarding, no peritoneal signs right CVA tenderness percussion, no rashes noted, no abdominal tenderness Extremities: No edema noted in the LE B/L, no tenderness to palpation Neurologic: Alert and oriented, speech clear Skin: No rashes or lesions Psych: Appropriate mood and behavior Medical Decision Making Patient is a 35-year-old female presenting to the ED for evaluation of right flank pain. Patient is nontoxic-appearing on arrival, no acute distress. Laboratory evaluation is obtained, patient is given IV fluids in addition to Toradol. Patient's laboratory evaluations unremarkable, there are crystals in her urine therefore CT of the abdomen pelvis is obtained. CT and pelvis is unremarkable. Patient is feeling improved on exam. She is discharged home with prescription for Naprosyn, Robaxin in addition to Zofran. Follow-up with her primary care doctor next 2 to 3 days. Assessment/Plan Bilateral back pain (M54.9: Dorsalgia, unspecified) Orders: ketorolac, 30 mg = 1 mL, Injection, IV Push, Once, Stop date 05/09/21 20:42:00 EST, STAT, Start date 05/09/21 20:42:00 EST, 05/09/21 20:42:00 EST methocarbamol, See Instructions, 2 tab(s) Oral QID 7 day(s), # 14 tab(s), Refills(s) 0 naproxen, 500 mg = 1 tab(s), Oral, BID, PRN for pain, # 20 tab(s), Refills(s) 0 ondansetron, 4 mg = 1 tab(s), Oral, q8hr, PRN Nausea/Vomiting, # 12 tab(s), Refills(s) 0 Sodium Chloride 0.9% intravenous solution 1,000 mL, 1,000 mL, IV, 983.61 mL/hr, for 30 day(s), Stop date 06/08/21 20:41:00 EST, STAT, Start date 05/09/21 20:42:00 EST, 61 minute(s), Total volume (mL): 1,000, 68.1 kg, 1.76, m2 Automated Diff Beta hCG Qual CBC w/ Auto Diff Comprehensive Metabolic Panel COVID-19 ([facility] CT Abdomen/Pelvis w/ Contrast eGFR Extra Blue Tube UA With Cult Reflex Medications Administered Given Sodium Chloride 0.9% IV Dot 1000 mL 1,000 mL, 1000 mL, IV ketorolac 30 mg/mL Inj 1 mL, 30 mg, IV Push Disposition Plan Discharge Prescription List Prescriptions Naprosyn 500 mg Tab, 500 mg= 1 tab(s), Oral, BID, PRN Robaxin 500 mg Tab, See Instructions Zofran 4 mg Tab, 4 mg= 1 tab(s), Oral, q8hr, PRN Follow-up With When Contact Information Gera Neves In 3 days 05/12/2021 EST [address] [facility] [place] [address] [place] [address]- Business (1) Additional Instructions: Patient Education Back Exercises, Kzbx-qc-Vxjb Acute Back Pain, Adult Problem List/Past Medical History Ongoing No qualifying data Historical Migraine Procedure/Surgical History , x 2. Medications Inpatient ketorolac 30 mg/mL Inj 1 mL, 30 mg= 1 mL, IV Push, Once Sodium Chloride 0.9% IV Dot 1000 mL 1,000 mL, 1000 mL, IV Home CeleXA 20 mg Tab, 20 mg= 1 tab(s), Oral, Daily dexamethasone 6 mg oral tablet, 6 mg= 1 tab(s), Oral, Daily Levaquin 750 mg Tab, 750 mg= 1 tab(s), Oral, q24hr Maxalt 10 mg Tab, 10 mg= 1 tab(s), Oral, Daily, PRN Allergies No Known Allergies Social History Alcohol - Low Risk, 03/16/2015 1-2 times per month, 11/15/2020 Current, Wine, 1-2 times per month, Alcohol use interferes with work or home: No. Drinks more than intended: No. Others hurt by drinking: No. Ready to change: No. Household alcohol concerns: No., 04/11/2020 Current, 01/24/2018 Alcohol use interferes with work o (more content not included)... Normal [facility] Comment on above: Result Comment: Elec tronically Signed By: Marcio Woodall DO\.br\Date and Time Signed: 05/09/21 23:05 EST ED Patient Education Noteon 05-10-2021 ED Patient Education Note Orthopedics Back Exercises These exercises help to make your trunk and back strong. They also help to keep the lower back flexible. Doing these exercises can help to prevent back pain or lessen existing pain. ? If you have back pain, try to do these exercises 2?3 times each day or as told by your doctor. ? As you get better, do the exercises once each day. Repeat the exercises more often as told by your doctor. ? To stop back pain from coming back, do the exercises once each day, or as told by your doctor. Exercises Single knee to chest Do these steps 3?5 times in a row for each le. Lie on your back on a firm bed or the floor with your legs stretched out. 2. Bring one knee to your chest. 3. Grab your knee or thigh with both hands and hold them it in place. 4. Pull on your knee until you feel a gentle stretch in your lower back or buttocks. 5. Keep doing the stretch for 10?30 seconds. 6. Slowly let go of your leg and straighten it. Pelvic tilt Do these steps 5?10 times in a row: 1. Lie on your back on a firm bed or the floor with your legs stretched out. 2. Bend your knees so they point up to the ceiling. Your feet should be flat on the floor. 3. Tighten your lower belly (abdomen) muscles to press your lower back against the floor. This will make your tailbone point up to the ceiling instead of pointing down to your feet or the floor. 4. Stay in this position for 5?10 seconds while you gently tighten your muscles and breathe evenly. Cat?cow Do these steps until your lower back bends more easily: 1. Get on your hands and knees on a firm surface. Keep your hands under your shoulders, and keep your knees under your hips. You may put padding under your knees. 2. Let your head hang down toward your chest. Tighten (contract) the muscles in your belly. Point your tailbone toward the floor so your lower back becomes rounded like the back of a cat. 3. Stay in this position for 5 seconds. 4. Slowly lift your head. Let the muscles of your belly relax. Point your tailbone up toward the ceiling so your back forms a sagging arch like the back of a cow. 5. Stay in this position for 5 seconds. Press-ups Do these steps 5?10 times in a row: 1. Lie on your belly (face-down) on the floor. 2. Place your hands near your head, about shoulder-width apart. 3. While you keep your back relaxed and keep your hips on the floor, slowly straighten your arms to raise the top half of your body and lift your shoulders. Do not use your back muscles. You may change where you place your hands in order to make yourself more comfortable. 4. Stay in this position for 5 seconds. 5. Slowly return to lying flat on the floor. Bridges Do these steps 10 times in a row: 1. Lie on your back on a firm surface. 2. Bend your knees so they point up to the ceiling. Your feet should be flat on the floor. Your arms should be flat at your sides, next to your body. 3. Tighten your butt muscles and lift your butt off the floor until your waist is almost as high as your knees. If you do not feel the muscles working in your butt and the back of your thighs, slide your feet 1?2 inches farther away from your butt. 4. Stay in this position for 3?5 seconds. 5. Slowly lower your butt to the floor, and let your butt muscles relax. If this exercise is too easy, try doing it with your arms crossed over your chest. Belly crunches Do these steps 5?10 times in a row: 1. Lie on your back on a firm bed or the floor with your legs stretched out. 2. Bend your knees so they point up to the ceiling. Your feet should be flat on the floor. 3. Cross your arms over your chest. 4. Tip your chin a little bit toward your chest but do not bend your neck. 5. Tighten your belly muscles and slowly raise your chest just enough to lift your shoulder blades a tiny bit off of the floor. Avoid raising your body higher than that, because it can put too much stress on your low back. 6. Slowly lower your chest and your head to the floor. Back lifts Do these steps 5?10 times in a row: 1. Lie on your belly (face-down) with your arms at your sides, and rest your forehead on the floor. 2. Tighten the muscles in your legs and your butt. 3. Slowly lift your chest off of the floor while you keep your hips on the floor. Keep the back of your head in line with the curve in your back. Look at the floor while you do this. 4. Stay in this position for 3?5 seconds. 5. Slowly lower your chest and your face to the floor. Contact a doctor if: ? Your back pain gets a lot worse when you do an exercise. ? Your back pain does not get better 2 hours after you exercise. If you have any of these problems, stop doing the exercises. Do not do them again unless your doctor says it is okay. Get help right away if: ? You have sudden, very bad back pain. If this happens, stop doing the exerc (more content not included)... Normal [facility] ED Patient Summaryon 021 ED Patient Summary (Inserted Image. Ruchi ble to display) [address] [address] Patient Discharge Instructions Person Information Name: PAULINE LOPEZ Age: 35 Years Arrival Date: 05/09/2021 20:12:01 Discharge Diagnosis: Bilateral back pain Primary Care Physician: Gera Neves MD Provider Information Primary Provider: Marcio Woodall DO Advanced Shot Packer:None The exam and treatment you received in the Emergency Department were for an urgent problem and are not intended as complete care. It is important that you follow up with a doctor, nurse practitioner, or physician?s accounts payable assistant for ongoing care. If your symptoms become worse or you do not improve as expected and you are unable to reach your usual health care provider, you should return to the Emergency Department. We are available 24 hours a day. PAULINE LOPEZ has been given the following list of patient education materials, prescriptions and follow-up instructions: Follow-up Instructions: With: Address: When: Gera Neetu [address] [place] [address], [place] [address] Business (1) In 3 days 05/12/2021 In the event that this physician does not participate in your insurance network, please consult with your insurance company to find a nearby participating provider. Patient Education Materials: Back Exercises, Vrxz-kd-Niwn; Acute Back Pain, Adult A MESSAGE TO ALL PATIENTS REGARDING OPIOIDS PRESCRIPTION OPIOIDS: WHAT YOU NEED TO KNOW Prescription opioids can be used to help relieve xbzuvnxa-eg-xlikrm pain and are often prescribed following a surgery or injury, or for certain health conditions. These medications can be an important part of the treatment but also come with serious risks. It is important to work with your healthcare provider to make sure you are getting the safest, most effective care. WHAT ARE THE RISKS AND SIDE EFFECTS OF OPIOID USE? Prescription opioids carry serious risks of addiction and overdose, especially with prolonged use. An opioid overdose, often marked by slowed breathing, can cause sudden . The use of prescription opioids can have a number of side effects as well, even when taken as directed: ? Tolerance?meaning you might need to take more of the medication for the same pain relief ? Physical dependence?meaning you have symptoms of withdrawal when a medication is stopped ? Increased sensitivity to pain ? Constipation ? Nausea, vomiting, and dry mouth ? Sleepiness and dizziness ? Confusion ? Depression ? Low levels of testosterone that can result in lower sex drive, energy, and strength ? Itching and sweating RISKS ARE GREATER WITH: ? History of drug misuse, substance use disorder, or overdose ? Mental health conditions (such as depression or anxiety) ? Sleep apnea ? Older age (65 years and older) ? Avoid alcohol while taking prescription opioids. Also, unless specifically advised by your health care provider, medications to avoid include: ? Benzodiazepines (such as Xanax or Valium) ? Muscle relaxants (such as Soma or Flexeril) ? Hypnotics (such as Ambien or Lunesta) ? Other prescription opioids KNOW YOUR OPTIONS Talk to your health care provider about ways to manage your pain that don?t involve prescription opioids. Some of these options may actually work better and have fewer risks and side effects. Options may include: ? Pain relievers such as acetaminophen, ibuprofen, and naproxen ? Some medication that are also used for depression or seizures ? Physical therapy and exercise ? Cognitive behavioral therapy, a psychological, goal-directed approach, in which patients learn how to modify physical, behavioral, and emotional triggers of pain and stress. IF YOU ARE PRESCRIBED OPIOIDS FOR PAIN: ? Never take opioids in greater amounts or more often than prescribed. ? Follow up with your primary health care provider. o Work together to create a plan on how to manage your pain. o Talk about ways to help manage your pain that don?t involve prescription opioids. o Talk about any and all concerns and side effects. ? Help prevent misuse and abuse o Never sell or share prescription opioids. o Never use another person?s prescription opioids. ? Store prescription opioids in a secure place and out of reach of others (this may include visitors, children, friends, and family). ? Safely dispose of unused prescription opioids: Find your community drug take-back program or your pharmacy mail-back program, or flush them down the toilet, following guidance from the Food and Drug Administration (www.fda.gov/Drugs/Reso urcesForYou). ? Visit www.cdc.gov/drugoverdos e to learn about the risks of opioids abuse and overdose. ? If you believe you may be struggling with addiction, tell your health healthcare market consultant and ask for guidance or call SAMHSA?S National Helpline at 9-293- (more content not included)... Normal [facility] RAD - Preliminary Cat Scan R eporton 05-10-2021 RAD - Preliminary Cat Scan Report [id number] CD:127 Normal [facility] Auto Diffon 05-09-2021 Basophils/100 WBC (Bld) 0.5 % Normal 0.0-2.0 [facility] Comment on above: Order Comment: Order Added by Discern Expert. Performed By: #### 2 158938, 0449589, 7681800, 46743628, 74362979 ####[facility] [address] [place] [address] Basophils/Leukocytes Auto (Bld) [Pure # fraction] 0.0 E9/L Normal 0.0-0.2 [facility] Comment on above: Order Comment: Order Added by Discern Expert. Performed By: #### 2 588907, 7856502, 6875828, 06968594, 22236877 ####[facility] [address] [place] [address] Eosinophils/100 WBC (Bld) 1.2 % Normal 0.0-8.0 [facility] Comment on above: Order Comment: Order Added by Discern Expert. Performed By: #### 2 906581, 0649865, 2946670, 30436845, 83918584 ####[address] [address] Eosinophils/Leukocyte s Auto (Bld) [Pure # fraction] 0.1 E9/L Normal 0.0-0.5 [facility] Comment on above: Order Comment: Order Added by Discern Expert. Performed By: #### 2 876537, 0083087, 2274033, 58134451, 12487482 ####[address] [address] Lymphocytes/100 WBC (Bld) 22.2 % Normal 14.0-50.0 [facility] Comment on above: Order Comment: Order Added by Discern Expert. Performed By: #### 2 617974, 4327935, 9891998, 77798573, 70749158 ####[facility] [address] [place] [address] Lymphocytes/Leukocyte s Auto (Bld) [Pure # fraction] 1.3 E9/L Normal 1.0-4.0 [facility] Comment on above: Order Comment: Order Added by Discern Expert. Performed By: #### 2 800099, 7907503, 2337342, 03869539, 48007315 ####[address] [place] [address] Monocytes/100 WBC (Bld) 7.9 % Normal 4.0-14.0 [facility] Comment on above: Order Comment: Order Added by Discern Expert. Performed By: #### 2 572873, 3218407, 6963566, 00226066, 80715541 ####[address] [address] Monocytes/Leukocytes Auto (Bld) [Pure # fraction] 0.5 E9/L Normal 0.2-1.0 [facility] Comment on above: Order Comment: Order Added by Discern Expert. Performed By: #### 2 039325, 7833861, 6455375, 88618400, 95878671 ####[address] [address] Neutrophils/100 WBC (Bld) 68.2 % Normal 36.0-75.0 [facility] Comment on above: Order Comment: Order Added by Discern Expert. Performed By: #### 2 011987, 7291672, 2905255, 96527374, 47184318 ####[address] [place] [address] Neutrophils/Leukocyte s Auto (Bld) [Pure # fraction] 4.0 E9/L Normal 2.0-7.5 [facility] Comment on above: Order Comment: Order Added by Discern Expert. Performed By: #### 2 046553, 0142099, 3540083, 19370279, 79537585 ####[facility] [address] [place] [address] [place] [address] B hCG Qualon 05-09-2021 Beta hCG Ql Negative Normal [facility] Comment on above: Performed By: #### 2 893822, 8263755, 4034439, 06726757, 07829663 ####[address] [address] CBC w/ Auto Diffon Erythrocyte distribution width (RBC) [Ratio] 12.2 % Normal 10.9-14.2 [facility] Comment on above: Performed By: #### 2 432764, 3335311, 4416672, 66701195, 87970903 ####[address] [address] Hematocrit (Bld) [Volume fraction] 36.9 % Normal 34.0-46.0 [facility] Comment on above: Performed By: #### 2 956338, 7657064, 5680471, 34949144, 75613041 ####[address] [address] Hemoglobin (Bld) [Mass/Vol] 12.4 g/dL Normal 12.0-16.0 [facility] Comment on above: Performed By: #### 2 426112, 7108448, 0446938, 71997934, 95379744 ####[address] [address] MCH (RBC) [Entitic mass] 31.3 pg Normal 27.0-34.0 [facility] Comment on above: Performed By: #### 2 818746, 1352068, 3800455, 72367054, 81156597 ####[address] [address] MCHC (RBC) [Mass/Vol] 33.7 g/dL Normal 31.4-36.0 [facility] Comment on above: Performed By: #### 2 127644, 0934784, 7693786, 53719493, 79436848 ####[address] [address] MCV (RBC) [Entitic vol] 92.7 fL Normal 80.0-100.0 [facility] Comment on above: Performed By: #### 2 841604, 4227891, 1402644, 75225864, 55212283 ####[address] [place] [address] Platelet mean volume (Bld) [Entitic vol] 9.3 fL Normal 6.4-10.8 [facility] Comment on above: Performed By: #### 2 737407, 3386247, 5375121, 91532031, 69289819 ####[address] [place] [address] Platelets (Bld) [#/Vol] 208.0 E9/L Normal 150.0-500.0 [facility] Comment on above: Performed By: #### 2 475032, 3293208, 0201678, 79697599, 69852469 ####[address] [address] RBC (Bld) [#/Vol] 4.0 E12/L Low 4.3-5.9 [facility] Comment on above: Performed By: #### 2 361173, 2031673, 5846978, 44788263, 10706269 ####[address] [address] WBC corrected for nucl RBC Auto (Bld) [#/Vol] 5.9 E9/L Normal 4.0-11.0 [facility] Comment on above: Performed By: #### 2 418303, 5721457, 1395546, 68684822, 79153365 ####[address] [place] [address] CMPon 05-09-2021 Anion gap [Moles/Vol] 12 mmol/L Normal 6-16 [facility] Comment on above: Performed By: #### 2 213682, 7605807, 3361321, 75683875, 17034025 ####[address] [place] [address] Potassium [Moles/Vol] 3.4 mmol/L Low 3.5-5.3 [facility] Comment on above: Performed By: #### 2 759631, 7116914, 5749575, 38504453, 38879609 ####[address] [place] [address] Albumin [Mass/Vol] 4.0 g/dL Normal 3.3-5.0 [facility] Comment on above: Performed By: #### 2 528959, 9522480, 3576210, 26805471, 98168872 ####[address] [place] [address] Albumin/Globulin (S) [Mass conc ratio] 1.5 Normal 1.1-2.2 [facility] Comment on above: Performed By: #### 2 703068, 4422898, 5661540, 70884596, 14608010 ####[facility] [address] [place] [address] ALP [Catalytic activity/Vol] 40 Int._Unit/L Normal 21-98 [facility] Comment on above: Performed By: #### 2 655083, 1848137, 2530533, 64264483, 74996344 ####[address] [place] [address] ALT No additional P-5'-P [Catalytic activity/Vol] 13 Int._Unit/L Normal 6-46 [facility] Comment on above: Performed By: #### 2 787945, 5385678, 0743876, 32096405, 04872638 ####[address] [place] [address] AST [Catalytic activity/Vol] 16 Int._Unit/L Normal 5-43 [facility] Comment on above: Performed By: #### 2 180066, 3067727, 3703842, 44444766, 06415099 ####[facility] [address] [place] [address] Bilirubin [Mass/Vol] 0.5 mg/dL Normal 0.0-1.1 [facility] Comment on above: Performed By: #### 2 184190, 3637279, 0102313, 33205298, 63800663 ####[facility] [address] [place] [address] Creatinine [Mass/Vol] 0.9 mg/dL Normal 0.5-1.3 [facility] Comment on above: Performed By: #### 2 157397, 0739043, 5411190, 33576252, 74824153 ####[facility] [address] [place] [address] Globulin (S) [Mass/Vol] 2.7 g/dL Normal 1.4-4.0 [facility] Comment on above: Performed By: #### 2 150093, 3253689, 1725635, 64926600, 02855120 ####[facility] [address] [address] Protein [Mass/Vol] 6.7 g/dL Normal 6.0-7.8 [facility] Comment on above: Performed By: #### 2 249403, 6099159, 6952156, 67314819, 93227587 ####[facility] [address] [place] [address] Urea nitrogen [Mass/Vol] 10 mg/dL Normal 5-21 [facility] Comment on above: Performed By: #### 2 740946, 9095796, 0212924, 91666828, 16811683 ####[facility] [address] [place] [address] Urea nitrogen/Creatinine [Mass ratio] 11 No Units Normal 10-20 [facility] Comment on above: Performed By: #### 2 712448, 5149409, 6501268, 67089140, 38375855 ####[facility] [address] [address] Calcium [Mass/Vol] 8.8 mg/dL Low 8.9-11.1 [facility] Comment on above: Performed By: #### 2 876591, 9582214, 9354995, 33907308, 30899007 ####[facility] [address] [place] [address] Chloride [Moles/Vol] 106 mmol/L Normal 101-111 [facility] Comment on above: Performed By: #### 2 424012, 2544336, 5970302, 63671785, 41973230 ####[facility] [address] [place] [address] CO2 [Moles/Vol] 22 mmol/L Normal 21-31 [facility] Comment on above: Performed By: #### 2 825464, 7096241, 2600101, 85683477, 48215248 ####[facility] [address] [place] [address] Glucose [Mass/Vol] 106 mg/dL Normal 55-199 [facility] Comment on above: Result Comment: If t his glucose result represents a fasting glucose, interpretation should refer to the following reference range: 55-99 mg/dL Performed By: #### 2 358689, 3909518, 8391608, 04163964, 72544875 ####[facility] [address] [place] [address] Sodium [Moles/Vol] 137 mmol/L Normal 135-145 [facility] Comment on above: Performed By: #### 2 145392, 2031988, 3668438, 98424241, 19579753 ####[facility] [address] [place] [address] COVID-19 ([facility]on 05-09-2021 Employed in Healthcare NO Normal [facility] Comment on above: Performed By: #### 2 [id number] ####[address] [place] [address] First Test NO Normal [facility] Comment on above: Performed By: #### 2 442157890 ####[address] [address] Hospitalized? NO Normal [facility] Comment on above: Performed By: #### 2 [id number] ####[facility] [address] [place] [address] ICU NO Normal [facility] Comment on above: Performed By: #### 2 150139834 ####[facility] [address] [place] [address] ? NO Normal [facility] Comment on above: Performed By: #### 2 875557466 ####[facility] [address] [place] [address] Resides in a Congregate Care Setting NO Normal [facility] Comment on above: Performed By: #### 2 568382986 ####[facility] [address] [place] [address] Symptomatic as defined by CDC YES Normal [facility] Comment on above: Performed By: #### 2 [id number] ####[facility] [address] [place] [address] Consent for Treatmenton 04-29 Consent for Treatment [id number] D:127 Normal [facility] UA With Cult Reflexon 2020 Bacteria LM Ql (Urine sed) TRACE Normal Trace [facility] Comment on above: Performed By: #### 1 5435364 ####[facility] [address] [place] [address] Bilirubin Ql (U) Negative Normal Negative [facility] Comment on above: Performed By: #### 1 6555900 ####[facility] [address] [place] [address] Clarity (U) SL CLOUDY Invalid Interpretation Code [facility] Comment on above: Performed By: #### 1 1187157 ####[facility] [address] [place] [address] Color (U) YELLOW Normal Yellow [facility] Comment on above: Performed By: #### 1 7557292 ####[facility] [address] [place] [address] Crystals LM Ql (Urine sed) Present Normal [facility] Comment on above: Performed By: #### 1 9013295 ####[address] [address] Epithelial cells.squamous LM.HPF (Urine sed) [#/Area] 0-2 Normal 0-2 [facility] Comment on above: Performed By: #### 1 8362632 ####[address] [address] Glucose Test strip (U) [Mass/Vol] Negative Normal Negative [facility] Comment on above: Performed By: #### 1 7896646 ####[address] [address] Hemoglobin Ql (U) Negative Normal Negative [facility] Comment on above: Performed By: #### 1 7132506 ####[address] [address] Ketones (U) [Mass/Vol] Negative Normal Negative [facility] Comment on above: Performed By: #### 1 3251998 ####[address] [address] [place].plasma/Lithiu m.RBC (Bld) [Mass ratio] 0-3 Normal 0-3 [facility] Comment on above: Performed By: #### 1 2430287 ####[address] [address] Nitrite Ql (U) Negative Normal Negative [facility] Comment on above: Performed By: #### 1 4350953 ####[address] [address] pH (U) 8.0 [pH] Invalid Interpretation Code 5.0-9.0 [facility] Comment on above: Performed By: #### 1 0245211 ####[address] [address] Protein (U) [Mass/Vol] Negative Normal Negative [facility] Comment on above: Performed By: #### 1 4849782 ####[facility] [address] [place] [address] Specific gravity (U) [Rel density] 1.020 Invalid Interpretation Code 1.005-1.030 [facility] Comment on above: Performed By: #### 1 3041922 ####[facility] [address] [place] [address] Type of Urine collection method Clean Catch Normal [facility] Comment on above: Performed By: #### 1 3376738 ####[facility] [address] [place] [address] Urobilinogen Qn (U) 1.0 {Nicole'U}/dL Normal 0.0-1.0 [facility] Comment on above: Performed By: #### 1 5610631 ####[facility] [address] [place] [address] WBC Auto Ql (U) Negative Normal Negative [facility] Comment on above: Performed By: #### 1 9656933 ####[facility] [address] [place] [address] WBC LM.HPF (Urine sed) [#/Area] 0-5 Normal 0-5 [facility] Comment on above: Performed By: #### 1 5483245 ####[facility] [address] [place] [address] eGFRon 05-09-2021 GFR/1.73 sq M.predicted among blacks MDRD (S/P/Bld) [Vol rate/Area] mL/min/{1.73_m2} Normal >=59 [facility] Comment on above: Order Comment: Order added by Discern Expert. Result Comment: eGFR is race adjusted. AA=. Performed By: #### 2 312581, 7580013, 1855472, 38204535, 74276287 ####[facility] [address] [place] [address] GFR/1.73 sq M.predicted among non-blacks MDRD (S/P/Bld) [Vol rate/Area] mL/min/{1.73_m2} Normal >=59 [facility] Comment on above: Order Comment: Order added by Discern Expert. Result Comment: [employer] nabila kidney disease could be indicated at eGFR's of less than 60 mL/min/1.73m2. Kidney failure is indicated at less than 15 mL/min/1.73m2. Performed By: #### 2 374703, 7284984, 2096504, 64744099, 81071331 ####[facility] [address] [place] [address] Coding Summary.on 04-24-2021 Coding Summary. CD:[id number] Gh0 bWw+PGhlYWQ+EZ9ETWKyE63 qxCDtpV9KS3kMBM3IKFUMYS ERIR7GMQ4nzVP8FVcsU6Dvy iAv WjmwmNQsLX17ECu6NNW0eCr cUAtyaJ0rdOUwQ6x1OmOaTS 19mM53IIwbDLBeQyF4DkWgb jsgbWFy Z1olTxWlpJQrWeu+PHRhYmx lIHdpZHRoPScxMDAlJyBzdH rjUD9fVb4eVIIqVOOelOoit HNlOiBj v5dbOBVxNHpxHN9mcEslT5Z mlFF9MBQlg6j4Pm68oUU+PH RdKTQ9qWdqAMsmf224ThTij 2yjDWL3 uVPtTYnkNNI7B66da8G5GGY bVSTfESN4aGB1xZ8vnOcqkk grY2NiyRJfWcV2VCZ7sQTql H6ztMat qtlavK7vHxl+X50JZK1FITY GSS9BYzh3X3IzPoomsPK+PC 84HPXwLE42xYHutAVit4ztg Cp1IdDz LKIpAGE4uEfrVJsgf4TxLBV bF87pmJHmc9W0KNOlsXqugK FuGeCblWE1kJ9mUTbggmqfb 2hvdzsn Kbmnw1nnfs65kJ22O26mNCu oKKZuQHH1ULZxJRMxgHhsfx 0nnP5nHf2+CEjtt5iew7lvy Ai3CfJp LWBwhpRheKwxHCA0m1GtBo6 1K9NsgIenc8NiRet5zf48gY Mvx6I4gDE5OKlwBCLufT8bU WxlZnQ6 HRNxVhZsoE65wVWxGGgiWf7 jmJwseAprDE8qXZRijgaoRM MhoN7dGYRxoTTagDslQW7qK TBpbjtm o454QmPfXUE7EESdkNCgB7T tzD2lRuQgPDPhXMQiB9KelG RwOAemQ479PRrjHeT0ESZph cEwP4Qe TJQhcDzqUjM6t2Z6Gm1Tz6O kpxveUCV9HFqqRUBfUdL5Dr YwHjC7P9SlEnp9AZFbfAnnN P0dH8Wy ITWtzpmfnnhjcFQ6NFLaBNQ gbG22pKXuACiiWw9bh2T9q0 00XMNsIEVnpG52Fe3epVxgF TBwdCBU pY9esxzqc0odoajaHeJoBKA fDEz1LPh5ZVLgpTdySwWaRK Y5SsY9TWP2tONxwR0jmNdxd jvjnD4o Oyc+P32ycN4eSZI7MVO8lbs yKXPcrcAgUH82TX59K7TvDz wvdGFibGU+PGRpdiBzdHlsZ M8vHtUd m5pnl8SsHGjmJ5YqCBBfIPp iQuh9YPLqDOO3wQR7mB1sRU XwLUvls4T6aWX1Y8WtpgYfz z0mb2tv XEOrRPcvC61ftOLer7N3ADQ ehKB1HZSpsMojJwHkqE57Lz c+CTLqcQzym4AnZuvbg8gdc 9heuKe5 CcXwAMPukiKhmUhqPOL7p6G rYh19O94xEDciBQGvYKMyRX SaLGMxaUajix2hvY2zIt2+P GNvbCB3 oVJ0qX9qSXEvNwC6BBddC48 4KkOpjHTkBfixa5adg0sujW y4MhOoZRBuutAkdRcaPEE0l 4UsNj50 O29qYGoiCMBzPRYnAKZsDWW ypWgqdh5srS9kAn5+PC9jb2 ieda05qX48aLU+BUHmQLK8z WxlPSdw WGXtvZ5dCPraWxL6CHFjJpJ oyQ02rACyJHrqFb0uuZmmpM ipOL6fQKMojadcl829YiSuu 2xkIDEw fGGoWOawGHW9A04yc5X1NMD jTJJuIVI3xSP4uB0vhOunzi ogbGVmdDsgdmVydGljYWwtY PwaR330 IHRvcDsnPlBhdGllbnQgTmF jSZv2W7GvKge2IKFepIctAW 0qhFKySYuuGp7kpYglzQwtX I2vPOXx xcgnz696KxEfi5fuOGLxqUM kEJmzONA4Z19nq3W4CXOgPK WoFOW5pAN9wK6rkJxuqvaxn GVmdDsg gmOzjKsdKZsaCDswH263IXR yoIjjYjDjaxDkKOWghUM6BC 22ES45sSNvc5P4fWI8E2YrL GRpbmct mhzrkAT9MQNaQERkfD26Bi0 ymGzoCu2dACKhIYX8DBKmxP BwQ2JybS7pXfQeQEJeBSHdZ 3RleHQt EJyoB613DOmgVgQ4PWNcirI kU9UoSJSzqVjhJgA5g8U5Yf 7ED7E2OX92IR93wZKtp4J3h GC4X3Wo LBVhqmlexcqqzJM9CKCsSDO gxM03Qq8eaLapEd9cHBEqGQ C9NUVwfRJfP9PtqW6oEdYaL DAwMDAw H6MslFFjZWyfV529HJinNrG 6HDPkgoPdE9ItILHhaOtoOt O6c8F0Xb5ZKUs2UR33NF70w MCfz4A8 vJL3S8WnZIHzormdwbbbwDW 1IKVfZLAsyM72In1duGuoYq 5bQBEmSRF8OUZmpUCtA6Nzw D5sKaOf KXRsEEEtI5QhoYXvQAxrG09 7BMltKdI9XRFazpWaZ7YeSU YsxZvoYfV2f8M8Pt9LAIOiX E48IXT5 dPZ1XC49NP89N2VpThaawBQ ibGU+PHRhYmxlIHdpZHRoPS myZUCdTsNezAojAB1nNy0aO GVyLWNv iRqvqQNmRdPpz8abZXQzLPr tIN4huVblO8MhwDV2YZMnj4 a4Ru27F20dR7ZmrCS+PGNvb BJ9jLV6 uP1bJgVzXrB8QAbeE369ElM tzZTbRewtt6lzn5czjTz1He X9XIVwfwJgmDazGVH1z1CoS m52Y99y IHdpZHRoPSIxNSUiIHZhbGl zpu6grB4wVb7+IATyqWM3iV Y4mE7uJdNcNiV4HBiaQ919E nRvcCIv Rddqo0csx9zouKe3MkEtDJC oxjCwxQmiHUQ3e6ViSi92Q1 BwkPckh6FzUbx3ht28uHDmn 0F6dMB2 A2PeZODftfrrhRZgdAnbWP4 uHALsljvxUNQwxT2rYHZxJ0 l6FiXsUvL7WXmgY4XmwkE8R DEwcHQg IGprPNI5H29wn3U5GGSuRKH jSTR9yYM3aA4oeJyswpmjqP VmdDsgdmVydGljYWwtYWxpZ 246IHRv jWgrZBExqX8zSEHepMAyfPb jNG1bJIRfnwirOxAXRVRCPU uBRXqtQOzRXI5SPCRJNF58R E12pDNz u2K6wUW1U3YmUHZwnnkikrr dnGK0DPYyVAEkoO77jJFjYE qnGj5jx5T0j982IWMjQHXet X96Um4s wKzvDOKggPLGhV9rsqrou4n cnqlqJmOfXDHdSVd6MVw7JQ FkaFvzWkQrJRB6GaI0CKI1d AQolB7e pKfzqzrvxB1tTdf+MDMvMTY yAQc5FuayzOX+OVFkMPM7bY faHWtsXFWspL4pLHVtS0q8D iAwLjA1 KQbhN6OkAZMtczyaRi33kQ4 lKaMxMzB3RZyhH3HsxfI1UH KguKHhKRseYJY3R24nz6P1C CMwMDAw LYA6vCW1nN7hyBmnkjmzpOB mdDsgdmVydGljYWwtYWxpZ2 52EIGcuVwpNyW4ERbqJMEhB Y07PO44 pQOel0U7qGW8F5HuOXJzzrk uazftrCZ2VIOnNRPavU75dS AiEWzaHf2jz1N5g879VPRcA DUwaW47 Fb3wePzrMSTytXAQjD4yxhz rb5dctejaVcSfMCEiJWz6SZ x4JOMksEzvBaRcVMT8HgW0H OY6sZUr rO5fyOwqmbkobW9gKqd+RmV eWHtxVM00BK48lAXiu4W5aS A7B9BxVECtyillwcishMJ1H DAuMDUw oJ67zKZsGTzsUh5us5V8z63 6SEQhAPBeuD99Be5gmQifGT PsoQTIdJ9wjbgfc2liqqhiP zAwMDAw CEq0OXm6KRRnwBijRaZhVOW 5QdU9NDH7pRGoxF6ejTrbbf zxbH0dJsl+T7G9lJW0kGGmi DwvdGQ+ KD64iu35W4DmOhedCik8YXX gSIN2aBY7eL9cUGHlKRiyj0 S5mAQ8R0MogkXovk0fu6smF XBzZTog Z89ptHDqj9J6XCHtpRH0ZVE vlNmrSyCyhW14Ipf+PGNvbG cky3UpQkkoo8ful9xqkGy9S jMwJSIg jvUmwMpeDHI3p5SeRl33M31 sIHdpZHRoPSIzMCUiIHZhbG bhiu5idT9vZb9+SIBnzCC3y BS7jM8x QnGwPuC7ORycE715BdFhaSI qGqcoi4zwy3scfZv6IuIoDN WyglLktQdtQZI3a1ZfFx00C 2NvbGdy w4VbEea5vu86yUXgr2Q4cKZ 2D4XlAOYrsyazmTJvrGpzKG 5dVWIpetzdKDDnrW5cZIFvZ 2w9MoUb AjC7PXfgY9AstfM3CZZccOT tEGEiuPSBcV1swkgry8lvvr geOlPiBCHzSYw0LMk7BXAud WduOiBs LDU1OnJ8VSG2uIMuyU6qnIc rknehnA0qWoj+NOb1k9sqfB HiTZ2zpEF2GA30XK17sALhe 9N7mXG1 E5QeNCFmghvkexjflYH4GPQ bEUHmmC17At8jeYkfGc0vOQ RmNWX4IIAteMMpQ5PokV2aU iAjMDAw BMGtC1SunUHfOTgtG513HJv tQoP9GXTrciEuU7UrUJAsnO paTqF9f9O6Ic4FHW15LS39Q Y92nSGb z1P6bBX9F4GuOSRovnqnqwu slOC4DCMiJDAibW49Ka8coU hhWq4qOGZqUPR8DXImrGBfA 5ZqdK6y VxAuUYGbWLLmP0VuwYTjZOr nP105YSrrWnH5DYHwfzUpR9 WyIQEpeHsjDpU2m9T9Bs0LS z60DI47 SG80pSUkt1Q5bII7O3CiGAQ rxkekwibjhGA3ADQwCUOcgR 96Ox6ftIgmAi0yEBCcCQA5L FRpbWVz B8NvlP7dUtYwPXNaGQObY4N lvJAcDFviY575LZciWqO3AD TjpvCkI0CnSEYtrTrzOnC7c 4H6Jr6D USbgddk8Q9DlNsbugUG+PC9 7XUZaGE51jSCrdSKcg0ynhH g5YxQwCFMlLJF6qNhdHVbfx 3JkZXIt Y29s (more content not included)... Normal [facility] MTHFRon 04-08-2021 MTHFR gene targeted mutation analysis [employer] (Bld/Tiss) Comment Invalid Interpretation Code [facility] Comment on above: Result Comment: Resu lt: c.665C>T (p. [id number]), legacy name: [id number] - Not Detected c.1286A>C (p. [id number]), legacy name: [id number] - Not Detected Interpretation: This result is not associated with an increased risk for hyperhomocysteinemia. See Additional Clinical Information and Comments. Additional Clinical Information: Hyperhomocysteinemia is multifactorial involving genetic, clinical, and environmental risk factors. Reduced enzyme activity of methylenetetrahydrofolate reductase (MTHFR) is a genetic risk factor for hyperhomocysteinemia, particularly when serum folate levels are low. There are two common variants in the MTHFR gene that can decrease enzyme activity; c.665C>T (p. [id number]), legacy name [id number], and c.1286A>C (p. [id number]), legacy name [id number]. These variants do not independently increase risk of conditions related to hyperhomocysteinemia in the absence of elevated homocysteine levels. Measurement of total plasma homocysteine is recommended. Patients should share their MTHFR genotype with physicians who are making decisions regarding chemotherapy treatments that depend on folate, such as methotrexate. Guidelines do not recommend genotyping of these two MTHFR variants in the evaluation of venous thrombosis or obstetric risk due to limited evidence of clinical utility (PMID: 45920108). Comments: Genetic Coordinators are available for health care providers to discuss results at [phone] Test Details: Variants Analyzed: c.665C>T (p. [id number]), legacy name: C677T and c.1286A>C (p. [id number]), legacy name: [id number] Methods/Limitations: DNA analysis of the MTHFR gene was performed by PCR amplification followed by restriction enzyme analysis. The diagnostic sensitivity is >99%. Results must be combined with clinical information for the most accurate interpretation. Molecular-based testing is highly accurate, but as in any laboratory test, diagnostic errors may occur. False positive or false negative results may occur for reasons that include genetic variants, blood transfusions, bone marrow transplantation, somatic or tissue-specific mosaicism, mislabeled samples, or erroneous representation of family relationships. This test was developed and its performance characteristics determined by [facility]. It has not been cleared or approved by the Food and Drug Administration. References: Efrem SE, Everett CJ, Chasidy HV. ACMG Practice Guideline: lack of evidence for MTHFR polymorphism testing. Alona Med. 2012;15(2):153-6. doi: 10.1038/gim.2012.165. Epub 2012Jun 01. PMID: 86571492. [place] Of [place] [employer] and Gynec[employer]' Committee on Practice Bulletins-Obstetrics. ACOG Practice Bulletin No. 197: Inherited Thrombophilias in . Obstet Gynecol. 2018 Nov;132(1):e18-e34. doi: 10.1097/AOG.4852219398063600. Erratum in: Obstet Gynecol. 2018 Feb;132(4):1069. PMID: 19202946. More Jiménez, PhD, FACMG Aileen Corea, PhD, FACMG Leobardo Edward, PhD, FACMG Clint Hanson, PhD, FACMG Matheus Duong, PhD, FACMG Apple Kearns, PhD, FACMG Performed at: [facility] [address], [place] [id number] [facility] Melina Beltran Performed By: #### 2 360077, 6064111, 841653900, 69534566, 131644003, 404258275, 9020403 ####[facility] [address] [place] [address] PTH [place] 04-03-2021 Parathyrin.intact [Mass/Vol] 25 pg/mL Invalid Interpretation Code [facility] Comment on above: Result Comment: Perf ormed at: [facility] [address] [id number] PhD Troy Martinez Performed By: #### 1 [id number] #### [facility] Laboratory [address] [place] [address] CMPon 04-02-2021 Albumin [Mass/Vol] 4.4 g/dL Normal 3.3-5.0 [facility] Comment on above: Performed By: #### 2 787526, 1321263, 269902747, 92523841, 372483341, 201744698, 5185574 #### [facility] [address] [place] [address] Albumin/Globulin (S) [Mass conc ratio] 1.4 Normal 1.1-2.2 [facility] Comment on above: Performed By: #### 2 897295, 5000446, 906948941, 64115109, 182736234, 212852766, 3206632 #### [facility] [address] [place] [address] ALP [Catalytic activity/Vol] 41 Int._Unit/L Normal 21-98 [facility] Comment on above: Performed By: #### 2 536028, 2830318, 379839895, 16833192, 238074520, 858772590, 4658040 #### [facility] [address] [place] [address] ALT No additional P-5'-P [Catalytic activity/Vol] 18 Int._Unit/L Normal 6-46 [facility] Comment on above: Performed By: #### 2 651058, 0149382, 398818912, 31338016, 689732073, 898998253, 3359900 #### [facility] [address] [place] [address] Anion gap [Moles/Vol] 11 mmol/L Normal 6-16 [facility] Comment on above: Performed By: #### 2 857458, 4746381, 291834758, 99174960, 362411012, 393761712, 6735369 #### [facility] [address] [place] [address] AST [Catalytic activity/Vol] 19 Int._Unit/L Normal 5-43 [facility] Comment on above: Performed By: #### 2 323297, 8747912, 711142366, 09847224, 577325410, 985745717, 4520570 #### [facility] [address] [place] [address] Bilirubin [Mass/Vol] 0.9 mg/dL Normal 0.0-1.1 [facility] Comment on above: Performed By: #### 2 768181, 8068296, 970705863, 30542593, 903425764, 713187013, 4241832 #### [facility] [address] [place] [address] Calcium [Mass/Vol] 9.2 mg/dL Normal 8.9-11.1 [facility] Comment on above: Performed By: #### 2 810143, 3090685, 172730021, 94237304, 988205685, 947615171, 0303337 #### [facility] [address] [place] [address] Chloride [Moles/Vol] 105 mmol/L Normal 101-111 [facility] Comment on above: Performed By: #### 2 277392, 0774514, 634542703, 08136823, 095957902, 658138434, 4683691 #### [facility] [address] [place] [address] CO2 [Moles/Vol] 22 mmol/L Normal 21-31 [facility] Comment on above: Performed By: #### 2 422036, 5599257, 554241997, 99760791, 174764800, 711292355, 3100956 #### [facility] [address] [place] [address] Creatinine [Mass/Vol] 0.8 mg/dL Normal 0.5-1.3 [facility] Comment on above: Performed By: #### 2 687565, 4754668, 871477933, 74143148, 705674149, 566800757, 3859668 #### [facility] [address] [place] [address] Globulin (S) [Mass/Vol] 3.2 g/dL Normal 1.4-4.0 [facility] Comment on above: Performed By: #### 2 081760, 3759294, 958354318, 73891416, 375206941, 495180384, 7111919 #### [facility] [address] [place] [address] Glucose [Mass/Vol] 82 mg/dL Normal 55-199 [facility] Comment on above: Result Comment: If t his glucose result represents a fasting glucose, interpretation should refer to the following reference range: 55-99 mg/dL Performed By: #### 2 846021, 6295286, 136805683, 58878815, 287593290, 033267503, 5917654 #### [facility] [address] [place] [address] Potassium [Moles/Vol] 3.8 mmol/L Normal 3.5-5.3 [facility] Comment on above: Performed By: #### 2 109513, 8128257, 558394226, 05456083, 380987476, 786788924, 6879369 #### [facility] [address] [place] [address] Protein [Mass/Vol] 7.6 g/dL Normal 6.0-7.8 [facility] Comment on above: Performed By: #### 2 808214, 1252171, 181307707, 81804966, 351227034, 456877889, 2891091 #### [facility] [address] [place] [address] Sodium [Moles/Vol] 134 mmol/L Low 135-145 [facility] Comment on above: Performed By: #### 2 354219, 5031692, 326198416, 20099431, 699548381, 665677707, 0184038 #### [facility] [address] [place] [address] Urea nitrogen [Mass/Vol] 18 mg/dL Normal 5-21 [facility] Comment on above: Performed By: #### 2 059619, 9083289, 067724385, 52804337, 961340953, 051717695, 2583978 #### [facility] [address] [place] [address] Urea nitrogen/Creatinine [Mass ratio] 22 No Units High 10-20 [facility] Comment on above: Performed By: #### 2 600006, 4661611, 279423141, 37539595, 679866491, 248267026, 3242098 #### [facility] [address] [place] [address] Consent for Treatmenton Consent for Treatment [id number]#1.00C D:127 Normal [facility] [id number] 04-02-2021 HbA1c (Bld) [Mass fraction] 4.8 % Normal <=5.9 [facility] Comment on above: Performed By: #### 2 021986, 6639800, 780303890, 73401326, 170951314, 859017265, 2595007 ####[facility] [address] [place] [address] Lipid Panelon 04-02-2021 Cholesterol [Mass/Vol] 175 mg/dL Normal 120-200 [facility] Comment on above: Performed By: #### 2 937054, 8353688, 295936847, 32523695, 178448427, 106403719, 3409382 ####[facility] [address] [place] [address] Cholesterol in HDL [Mass/Vol] 61 mg/dL Invalid Interpretation Code [facility] Comment on above: Result Comment: HDL > or equal to 60 mg/dL: Low cardiovascular risk HDL < 40 mg/dL : High cardiovascular risk Performed By: #### 2 337011, 8816001, 856773702, 46820901, 745093355, 459954053, 0445034 ####[facility] [address] [place] [address] Cholesterol in LDL [Mass/Vol] 95 mg/dL Normal <=129 [facility] Comment on above: Performed By: #### 2 791342, 6274306, 563313222, 41957929, 381129981, 061156414, 6993284 ####[facility] [address] [place] [address] Cholesterol in VLDL [Mass/Vol] 13 mg/dL Normal 7-40 [facility] Comment on above: Performed By: #### 2 750211, 1669718, 521659768, 93707610, 801342743, 488518782, 7817440 ####[facility] [address] [place] [address] Triglyceride [Mass/Vol] 63 mg/dL Normal <=149 [facility] Comment on above: Performed By: #### 2 866141, 8239071, 588560892, 32705548, 264517480, 886593468, 6607354 ####[facility] [address] [place] [address] Phosphoruson 04-02-2021 Phosphate [Mass/Vol] 3.9 mg/dL Normal 1.9-4.6 [facility] Comment on above: Performed By: #### 2 857673, 9326284, 157866371, 80720885, 296501005, 583295769, 4549519 ####[facility] [address] [place] [address] Physician Orderon 04-02-2021 Physician Order [id number]#1.00 CD:127 Normal [facility] Vitamin D 25 Hydroxyon 04-02 25-hydroxyvitamin D3 [Mass/Vol] 45.3 ng/mL Normal 30.0-100.0 [facility] Comment on above: Result Comment: Vit norton D deficiency has been defined as a level of serum 25-OH vitamin D less than 20 ng/mL (1,2) by the [place] of [employer] and an Endocrine Society practice guideline. The Endocrine Society further defined vitamin D insufficiency as a level between 21 and 29 ng/mL (2). 1. IOM ([place] of Medicine). 2010. Dietary reference intakes for calcium and D. [place]: The National Academies Press. 2. Pb MF, Rachel NC, Rebekah-Gordon RAMOS, et al. Evaluation, treatment, and prevention of vitamin D deficiency: an Endocrine Society clinical practice guideline. JCEM. 2010; 96 (7):1911-30. Performed By: #### 2 367918, 3108746, 619874051, 42796679, 442683985, 150416018, 6904920 ####[facility] [address] [place] [address] eGFRon 04-02-2021 GFR/1.73 sq M.predicted among blacks MDRD (S/P/Bld) [Vol rate/Area] mL/min/{1.73_m2} Normal >=59 [facility] Comment on above: Order Comment: Order added by Discern Expert. Result Comment: eGFR is race adjusted. AA=. Performed By: #### 2 132646, 5139371, 713567900, 10333962, 509963656, 285893103, 1050312 #### [facility] [address] [place] [address] GFR/1.73 sq M.predicted among non-blacks MDRD (S/P/Bld) [Vol rate/Area] mL/min/{1.73_m2} Normal >=59 [facility] Comment on above: Order Comment: Order added by Discern Expert. Result Comment: [employer] nabila kidney disease could be indicated at eGFR's of less than 60 mL/min/1.73m2. Kidney failure is indicated at less than 15 mL/min/1.73m2. Performed By: #### 2 434620, 5856756, 570277597, 57912525, 768786529, 653525708, 5242879 #### [facility] [address] [place] [address] Coding Summary.on 11-20-2020 Coding Summary. CD:[id number]:[id number] Gh0 bWw+PGhlYWQ+IC7HQYUfJ64 wqQBknI6MT6rJXW6NFEEKHF SOTI2WAN9jiTO6JAfmB0Qua iAv JvhlqZToLQ18PBc8YEP4gGs wVXidhH9dmYLqP0w6HqLzAA 23xX54MCpeDYRoJwL9ByOvu jsgbWFy R5hxVvIpjIOxDgz+PHRhYmx lIHdpZHRoPScxMDAlJyBzdH zdRL5uKe9xYDIwINQixBnky HNlOiBj y9viZJBkYJzySG4zkYinI7R rfBQ7XRZbg0h4At18aDZ+PH ZzVOY0nXtrPNsuu110HvVed 3ufVXP5 eBNuUYkkCPS7X47zl2G0EBN wSDBlBWC3dCZ7vE4xtVftfr psY5WzpQVuSjQ8GBG5wHAir N2fyVxf qkgxnR7iNwf+A51WSB9WVIH DLK4EHmx6A5JdHhydeGO+PC 50XBIyBY23wAIxzUVag5bam Ua0NlJz URFqCOY0cEdoBYxxt8HgBTH mN76jjTLls6X0AUJszYzayX UaChPoiZL7bM0bWYroohqsf 2hvdzsn Nktxo4emhc88pT74E13bKUx zMLCkJQW5VEOfJLOsrSefcf 6ppE5yWc0+VHdwt2fjo7lei Wl2UeJq HXJsfsTfwTghTUN1f2PfOz3 6U5SmbLnxq5QeIsa0xr85nX Hcf1O7cKK8FFdmAGQcbB6dS WxlZnQ6 VEHxHnBogJ42fKXuYDwgBz4 hbHpvpKxkUJ1wHWFnfaspGL MrfD9pGRRjnLJhgBzxXK7oV TBpbjtm l387YoVsAJT5THQlxYDpW9C psT8tIvKfITXwFVYyM5XfjF XgQElaT706NGdfZbC2JZSbb dOwC2Lu PESjiZmnYvT0a9E5Nh6Sa2T nykbbRYM7VOlnOBT9BhY0So FyXvI6M1XoLlc1XDWprDliO Y5lT8Dm JVActyucfvscqHY6AUCiRCE tiU93zHCrDDwoHw5fm3Y4l0 08WKVtEHIieO85Jg1joEqvI TBwdCBU jA7ovilqm9xeabdjUiLaDFX aWDv4FVj0QHBmaAprIwRjTA P9UpM4IPB3rWSnyQ9geMaod lrmoL7u Oyc+Q26lyC9cHBG5EBG0sdq zZEFhajDvMC50JF85P6QnNs wvdGFibGU+PGRpdiBzdHlsZ O4vClAt y9iwb2QfFAuxY2YtAPPdGWf uAuh7TQUgDTU9aKN8qD6xUZ OrINibe3J9cZX5G7VhxwUeh d3nr6mx OTOaPXzjX24ctTGpb8C9YAQ fqSD9APYmfXerWwByuA27Sh c+BEOheGmvz5OoRchnf1qkc 4mxdRp2 QiYeQBTjhlTgcEbsPUA5t3J aFu41P40kSSnaALVeOJYjFZ CdXFMnjBzmfq8uaM9cHk7+P GNvbCB3 pCN0qU9aXQRzMdZ3VEwbT98 9ZqDkkZIiIdmlb8anc8dovX s4EdTpBYEjonBhlBmtSQI4n 2UrYf17 X03fGEkfZSAzJLClGRUaUWT scBusjy8qeP6rEr2+PC9jb2 yhei48lH54rNS+GXHsQSE9j WxlPSdw VNBodF2aDYzcKiF3YGSkRyT opF80wUMdSPclHe6bsJugmE gbFU8eQMYezapuy446BwVki 2xkIDEw wSVfFQexNUE1K44zj7D5TRY qHKQwIPE3aNM6tI6uhIfyfa ogbGVmdDsgdmVydGljYWwtY WszN435 IHRvcDsnPlBhdGllbnQgTmF qTKb7Z5XrZau8VOKkbNylZJ 1zqIPiAZlvFr4zbZyjyJxlY S0gHDQm zztmb537SdEbu0oeIIDjfCF rCExsNRL1R71ge4N2QMVbDV VaBMT0tOS8iZ5swOvgggyag GVmdDsg lfPrdTeoNKskFRtjE356MFG voHmwDoLpmfGvYVCvfXX9IA 66XY47cKEmp4W9iMV3N6JjU GRpbmct cnbrxSG1UDAoAWSxqN84Ho0 xcGkcHx8zQNAiYDJ3ZLCtrJ OqK2QcuU2hNjHkVTAwVHPbZ 3RleHQt GJqjP411YJyqKuV8EASljcN uG5CiFYNfrHpdBxM0q1Z6Ip 4YV0S5IO86QK56xIQsa5S2x LH6T4Kq HOClxbagyblrpFN0EFEsUEV mtN03Qn6gjObiOs1sOZDjHT G5SKJxnHAaR0JhaQ0aQyTeQ DAwMDAw Z4IcsYPyYXkfR648EOtvBxC 6ZKZebyTiI6WmZRAjpLmlEd A6f7A9Ph8AHPa9VI57EA02j IDuc9K3 oCV6U2AwHMFldlhlgctanXS 6ONNrHQBqjK40Uz3zmTldHb 9wFISzUHQ1SGRhtOIeT3Jvo O4zSsIl BOGbVQUwS9OyhCNlLFeyH47 4UYxxFrB9VDJpyeLeY5GxAN WjhFymFdX6n6L0Ch7TPCBtJ W87YRL5 pOE9NK64HE98V0ZgKgerxWM ibGU+PHRhYmxlIHdpZHRoPS piFLTwVeZynNgjSI0eYw8qX GVyLWNv kUmtfSJcDkUtz1voKPAaHUd hMU4zyUciD0BfzFI3BZCzn7 u6Dp73G02cJ9SsdYG+PGNvb RJ4kYR5 lF4oKxWuJiI4CRfoT034KdV fyPJvGnvfi4vnp3zmvUp5Sq P5BUWojvQypUjuNIA3v2HqM u54K77r IHdpZHRoPSIxNSUiIHZhbGl tio7azT8zKu2+DNNltYE6uS B9lO8cDcEgZbD0NTfqX524R nRvcCIv Hyzqs0xht7vrnOz9SnPtGJV eaeCqvIofJMU9m4ZbXa98A0 DsrGnpp7RnIal2ne37yNQwp 2W0kQH7 Y8JrNXLokiragIBtpCehTV1 dIULviyqbYHXnwU4lEAGhZ2 m6UkQvHiB0HHsbI3MxdgG6W DEwcHQg FLvmOOT7I72ex8S9PEYfYUT rNHR5rET3uW4wsRvrghxqdS VmdDsgdmVydGljYWwtYWxpZ 246IHRv yYwvGIYihH1zWSZvoZFbdTx xBD9aHMUxwnqaRjQWXTKPUV kDEEvmBKyCPB1XURVWPU54S Y60dLYz q1V6iWP1P7AeKRDzbqsiveo wzGR2HKGdFFZsgP42mAGvVG cjUy6wy4P5i846NYYsSEErg V28Wh6s pMvvDPRswZXHlR1oejwjd4l jhtduRkRzOYPrHJy1PBc8YN DewClzLaOdEJF8LnA8BGY8o OVjpH3b vDdkhtvrrW7wNbz+MDMvMTY uCTi3CtxzcBS+FSPpMUL7nW tdQEssEENyyQ9iKLSeN1y2I iAwLjA1 IWnpW8WiZAKehyocTo86kD1 fPoZiBrH1XUguA9LqfuZ8NU IeeLXcCJdcOUK3M21iw2P6Y CMwMDAw FEA5kFF8xZ8anSpfnzmzhCV mdDsgdmVydGljYWwtYWxpZ2 01DPAydTujJxT0JQtzKUBuN I87TY85 qVEis4G2qRP8T5ErVUIutzp xzehbvBL8CEGiIEAqhV63mU JxZQtsNk5gu5V1c612PVNvM DUwaW47 Xt2agKlbQJTzgPIOpM9bnxk pz5ffaenyFiLfIGKlNCx9MW h3GADplCvlJcPtDAE9MqP0Z LM5wLZn kT9xzEybnufweX3yBzs+RmV qNZnjWG84EZ18cLKiq4W7cU W4T9NoYIAxfmdmfudttMF4H DAuMDUw oE31jLNyVYhzPs4us9U6q42 4USLdELQnaH56Zz3oaAnoRS OwhQIAfY1xezgzg4qiykzhN zAwMDAw KRp5KMm8HGHndAifQfKhHMO 8AqU0EOU3cAPhdE1zfRovzx dsvY1tUmb+YZ0logajmtN5W F84XG89 V6FdEeuagWVnqCM+PHRhYmx lIHdpZHRoPScxMDAlJyBzdH iyEW3rKm9kRBDaZDPyrGvdj HNlOiBj z6svQSXkNUvxNW4hwHhdB7U cfZD5HXAdz2n7Pp82I66pK8 JvdXA+KBYbbDC6tDH5eY3gK zAlIiB2 JKxaK641YdIvbTShXzbnp6c bs2dmlNw1QtZzGJQvwwSeqZ cgZGI4x9QgDh74U64iOEnzM HRoPSIy DDIoBUMqqLuvzv2plV7jUo6 +WIOkcEU9eOA3aB8gUeEdQa T7GEdtM841VhNxdLUePtctX 15aJ9In dXA+OYZxVha6ARKpvSvaFP5 uwRXtMBsjJw5eJHA3RuYnOk IdTNscQ6WhQBAapodalvidw NB8CYQq UHUqoV50Kf7atDxgYc5vIYX mKYI3OXFepZKlY5HvbZ2rDb OtTSKaVCAjV2ZukVXbYAjjO 246IGxl YsO9DLTomsTsG7HvSNWplWm qQiT5a6M1Fl9RtOdufAVjDA 3wRsLnYIh1S7LqGpx7JISuz OxuKV2s sCCxMGbpCp8hyDcmhWrfFW6 qMWLmqclfo759YvQtt2ytWD UbyIRiRCtaIIE5W95mb5G4T CMwMDAw POE1sYU1nV9nzJflyshbmPQ mdDsgdmVydGljYWwtYWxpZ2 33OFCgoTffWfYNHqm9V6WeM ty8SGUq yUquBZ0ytYWiRBrmVm2bkWn kaPksQY5oKPGqgcldu903Df Phw1ieMGLgkMQiMYdmHNC7T 22jc1A5 FMZuKTIeWYR1zDL2bQ5cuCm nbjogbGVmdDsgdmVydGljYW qaCRfaN923AKCjuIddPs1QO gs5X8Ws Eat2BRMzoOyzJJ4ocWAtTIi gIa2eeDjoiAkmQS2dOGSvcp mhl640OiAff7gzDKCxcTBcW GltZXM7 M87az3E8JPCsCGCiDIG3oWJ 9vB9ylXtxyrzywWAoeHrayq GivFvwRDeiIPkgN540CZIsm DsnPlBh eWVyOjwvdGQ+ND00pd86C7W zPbqwBwf9XHQdIYA3iXZ0mN 6yWHGtHWxej6P5gLW2K1Hhg qCwbv9s b2xs (more content not included)... Normal [facility] ED Note-Physicianon 11-17-19 ED Note-Physician The radiologist has read the x-ray of the ankle and there is a discrepancy. His reading is as probable punctate mildly displaced avulsion fracture from the lateral malleolus. Soft tissue swelling. The patient has been treated with air splint crutches and Ortho follow-up. The patient was called this morning by me and let know of the discrepancy. She is instructed to make sure that she follows up with orthopedic doctor. I explained to the patient that the treatment is the same as her current treatment and that she needs to follow-up with Ortho. Normal [facility] Comment on above: Result Comment: Elec tronically Signed By: Katlyn Wiseman, Augustus Diehl.ruchi\Date and Time Signed: 11/16/20 09:56 EDT Consent for Treatmenton 10-28 Consent for Treatment [id number]#1.00C D:127 Normal [facility] Discharge Instructionson Discharge Instructions [id number] CD:127 Normal [facility] ED Clinical Summaryon 2020 ED Clinical Summary (Inserted Image. Ruchi ble to display) [place] [id number] ED Clinical Summary Person Information Name: PAULINE LOPEZ/[place] Age: 35 Years : 1985 Sex: Female Language: Tanzanian PCP: Gera Neves MD Marital Status: Phone: [phone] MRN: Visit Id: Visit Reason: Ankle pain-swelling; LEFT ANKLE Speciality: Acuity: 4 Enc Type: Emergency Med Service: Emergency Arrival: 11/15/2020 01:00:57 Discharge: 11/15/2020 02:25:43 LOS: 000 01:25 Checkin: 11/15/2020 01:00:57 Checkout: 11/15/2020 02:25:43 Dispo Type: Home (Routine DC) EVENTS: Event Name Event Status Request Date/Time Start Date/Time Complete Date/Time Arrive Complete 11/15/2020 01:00:57 11/15/2020 01:00:57 11/15/2020 01:00:57 Document Home Meds Request 11/15/2020 01:00:57 Triage Complete 11/15/2020 01:00:57 11/15/2020 01:16:56 11/15/2020 01:16:56 Bed Assign Complete 11/15/2020 01:14:37 11/15/2020 01:14:37 11/15/2020 01:14:37 Dr Exam Complete 11/15/2020 01:14:37 11/15/2020 01:14:50 11/15/2020 01:14:50 RN Exam Complete 11/15/2020 01:14:37 11/15/2020 02:03:54 11/15/2020 02:03:54 Registration Complete 11/15/2020 01:14:50 11/15/2020 01:20:18 11/15/2020 01:20:18 X-Ray Complete 11/15/2020 01:17:28 11/15/2020 01:31:07 11/15/2020 01:46:18 X-Ray Complete 11/15/2020 01:19:00 11/15/2020 01:31:07 11/15/2020 01:46:18 Reg Complete Request 11/15/2020 01:20:18 Reg Bed Request Complete 11/15/2020 01:20:18 11/15/2020 01:20:18 11/15/2020 01:20:18 Patient Care Complete 11/15/2020 01:45:53 11/15/2020 02:11:08 Wet Read Request 11/15/2020 01:46:18 Discharge Complete 11/15/2020 01:54:16 11/15/2020 02:25:49 11/15/2020 02:25:49 Patient Care Request 11/15/2020 01:56:37 Transfer Complete 11/15/2020 01:56:37 11/15/2020 02:25:49 11/15/2020 02:25:49 Meds Admin Cancel 11/15/2020 02:00:00 11/15/2020 02:10:22 Meds Admin Complete 11/15/2020 02:09:29 11/15/2020 02:12:02 Meds Admin Complete 11/15/2020 02:20:14 11/15/2020 02:23:58 ADDRESS: [address] [place] [phone] PHYS DOC NOTES: MEDICAL INFORMATION: Prescriptions Given: Medications to Continue with No Changes Other Medications citalopram (CeleXA 20 mg Tab) 1 Tablets By Mouth every day. dexamethasone (dexamethasone 6 mg oral tablet) 1 Tablets By Mouth every day. levofloxacin (Levaquin 750 mg Tab) 1 Tablets By Mouth every 24 hours. rizatriptan (Maxalt 10 mg Tab) 1 Tablets By Mouth every day as needed Headache. PATIENT EDUCATION INFORMATION: Instructions: Ankle Sprain Follow up: With: Address: When: Eulogio Ashley [address] [place], [place] [id number] [facility] () Within 1 to 2 days Comments: Patient is advised to follow-up with orthopedic surgery on Tuesday morning. She is also advised to come back to the emergency department if the symptoms get worse. With: Address: When: Gera Neves [address] [facility], [place] [address] Business (1) In 3 days DIAGNOSIS: 1:Ankle sprain Normal [facility] ED Note-Physicianon 11-16-19 ED Note-Physician Basic Information Time Seen: Sergio YADAV, Torrey 11/15/2020 01:14 Chief Complaint states stumbled down two steps tonight. pain to left ankle. swelling and abrasion noted. unable to bear weight. History of Present Illness Came to the emergency department after she twisted her left ankle while she was drunk. Patient is unable to ambulate on that. Patient is complaining of 6-7 out of 10 pain. Gets better with rest and worse with walking on that. Review of Systems A 10 point review of systems is negative except as noted above. Medical and Surgical History: Reviewed and noted Social history: Lives at home Tobacco: Denies Physical Exam Vitals & Measurements T: 36.8 ?C (Oral) HR: 105(Peripheral) RR: 20 BP: 118/84 SpO2: 98% HT: 162.0 cm HT: 162 cm WT: 65.9 kg WT: 65.9 kg BMI: 25.11 General: alert, no acute distress Skin: warm, dry Head: no trauma, normocephalic Neck: Trachea midline, no adenopathy, no tenderness Eye: normal conjunctiva, sclera clear ENMT: TM's clear, oral mucosa moist, no pharyngeal erythema or exudate Cardiovascular: regular rate and rhythm, normal peripheral perfusion Capillary refill Less than 1 second Respiratory: Lungs CTA, respirations non labored Chest wall: no deformity. Gastrointestinal: soft, non distended, no tenderness, no guarding bowel sounds normal.Hepatosplenomega ly negative Genitourinary Normal Back: No tenderness, Normal ROM, Normal alignment. Extremities: Left ankle swelling and tenderness Neurological: oriented x 4, LOC appropriate for age, CN II-XII intact, motor strength equal & normal bilaterally, sensation equal & normal bilaterally, speech normal Psychiatric: cooperative, affect appropriate for age, normal judgement, normal psychiatric thoughts. Medical Decision Making Patient x-rays negative for any fracture. Patient will be given Aircast splint with crutches. She is advised to follow-up with her primary care physician. Patient is also advised to come back to the emergency department if the symptoms get worse. Assessment/Plan 1. Ankle sprain (S93.409A: Sprain of unspecified ligament of unspecified ankle, initial encounter) Orders: Air Cast Crutches XR Ankle 3+ Views Left XR Tib/Fib Left 2 View Disposition Plan Patient Discharge Condition Stable Discharge Disposition Home Discharge Prescription List Prescriptions No active prescription medications Follow-up With When Contact Information Eulogio Ashley Within 1 to 2 days [address] [place] [address]- Business (1) Additional Instructions: Patient is advised to follow-up with orthopedic surgery on Tuesday morning. She is also advised to come back to the emergency department if the symptoms get worse. Gera Neves In 3 days [address] [place] [address]- Business (1) Additional Instructions: Patient Education Ankle Sprain Problem List/Past Medical History Ongoing No qualifying data Historical Migraine Procedure/Surgical History , x 2. Medications Inpatient No active inpatient medications Home CeleXA 20 mg Tab, 20 mg= 1 tab(s), Oral, Daily dexamethasone 6 mg oral tablet, 6 mg= 1 tab(s), Oral, Daily Levaquin 750 mg Tab, 750 mg= 1 tab(s), Oral, q24hr Maxalt 10 mg Tab, 10 mg= 1 tab(s), Oral, Daily, PRN Allergies No Known Allergies Social History Alcohol - Low Risk, 03/16/2015 Current, Wine, 1-2 times per month, Alcohol use interferes with work or home: No. Drinks more than intended: No. Others hurt by drinking: No. Ready to change: No. Household alcohol concerns: No., 04/11/2020 Current, 01/24/2018 Alcohol use interferes with work or home: No., 09/20/2017 Current, Beer, 1-2 times per month, 07/12/2015 Substance Abuse - Denies Substance Abuse, 05/03/2013 Current, 04/11/2020 Current, 01/24/2018 Tobacco - Denies Tobacco Use, 05/03/2013 Lab Results No qualifying data available. Diagnostic Results No qualifying data available. [facility] Comment on above: Result Comment: Chavez chow Signed By: Sergio YADAV, Torrey\.br\Date and Time Signed: 11/15/20 01:55 EDT ED Patient Education Noteon 11-15-2020 ED Patient Education Note Orthopedics Ankle Sprain An ankle sprain is a stretch or tear in a ligament in the ankle. Ligaments are tissues that connect bones to each other. The two most common types of ankle sprains are: ? Inversion sprain. This happens when the foot turns inward and the ankle rolls outward. It affects the ligament on the outside of the foot (lateral ligament). ? Eversion sprain. This happens when the foot turns outward and the ankle rolls inward. It affects the ligament on the inner side of the foot (medial ligament). What are the causes? This condition is often caused by accidentally rolling or twisting the ankle. What increases the risk? You are more likely to develop this condition if you play sports. What are the signs or symptoms? Symptoms of this condition include: ? Pain in your ankle. ? Swelling. ? Bruising. This may develop right after you sprain your ankle or 1?2 days later. ? Trouble standing or walking, especially when you turn or change directions. How is this diagnosed? This condition is diagnosed with: ? A physical exam. During the exam, your health care provider will press on certain parts of your foot and ankle and try to move them in certain ways. ? X-ray imaging. These may be taken to see how severe the sprain is and to check for broken bones. How is this treated? This condition may be treated with: ? A brace or splint. This is used to keep the ankle from moving until it heals. ? An elastic bandage. This is used to support the ankle. ? Crutches. ? Pain medicine. ? Surgery. This may be needed if the sprain is severe. ? Physical therapy. This may help to improve the range of motion in the ankle. Follow these instructions at home: If you have a brace or a splint: ? Wear the brace or splint as told by your health care provider. Remove it only as told by your health care provider. ? Loosen the brace or splint if your toes tingle, become numb, or turn cold and blue. ? Keep the brace or splint clean. ? If the brace or splint is not waterproof: ? Do not let it get wet. ? Cover it with a watertight covering when you take a bath or a shower. If you have an elastic bandage (dressing): ? Remove it to shower or bathe. ? Try not to move your ankle much, but wiggle your toes from time to time. This helps to prevent swelling. ? Adjust the dressing to make it more comfortable if it feels too tight. ? Loosen the dressing if you have numbness or tingling in your foot, or if your foot becomes cold and blue. Managing pain, stiffness, and swelling ? Take ejnn-ifm-qmffiaw and prescription medicines only as told by your health care provider. ? For 2?3 days, keep your ankle raised (elevated) above the level of your heart as much as possible. ? If directed, put ice on the injured area: ? If you have a removable brace or splint, remove it as told by your health care provider. ? Put ice in a plastic bag. ? Place a towel between your skin and the bag. ? Leave the ice on for 20 minutes, 2?3 times a day. General instructions ? Rest your ankle. ? Do not use the injured limb to support your body weight until your health care provider says that you can. Use crutches as told by your health care provider. ? Do not use any products that contain nicotine or tobacco, such as cigarettes, e-cigarettes, and chewing tobacco. If you need help quitting, ask your health care provider. ? Keep all follow-up visits as told by your health care provider. This is important. Contact a health care provider if: ? You have rapidly increasing bruising or swelling. ? Your pain is not relieved with medicine. Get help right away if: ? Your foot or toes become numb or blue. ? You have severe pain that gets worse. Summary ? An ankle sprain is a stretch or tear in a ligament in the ankle. Ligaments are tissues that connect bones to each other. ? This condition is often caused by accidentally rolling or twisting the ankle. ? Symptoms include pain, swelling, bruising, and trouble walking. ? To relieve pain and swelling, put ice on the affected ankle, raise your ankle above the level of your heart, and use an elastic bandage. ? Keep all follow-up visits as told by your health care provider. This is important. This information is not intended to replace advice given to you by your health care provider. Make sure you discuss any questions you have with your health care provider. Document Released: 05/16/2006 Document Revised: 02/05/2019 Document Reviewed: 10/10/2018 Elsevier Patient Education ? 2019 Get10. [facility] ED Patient Summaryon 021 ED Patient Summary (Inserted Image. Ruchi ble to display) [address] [address] Patient Discharge Instructions Person Information Name: PAULINE LOPEZ Age: 35 Years Arrival Date: 11/15/2020 01:00:57 Discharge Diagnosis: 1:Ankle sprain Primary Care Physician: Gera Neves MD Provider Information Primary Provider: Sergio YADAV, Torrey Advanced Shot Packer:None The exam and treatment you received in the Emergency Department were for an urgent problem and are not intended as complete care. It is important that you follow up with a doctor, nurse practitioner, or physician?s accounts payable assistant for ongoing care. If your symptoms become worse or you do not improve as expected and you are unable to reach your usual health care provider, you should return to the Emergency Department. We are available 24 hours a day. PAULINE LOPEZ has been given the following list of patient education materials, prescriptions and follow-up instructions: Follow-up Instructions: With: Address: When: [address] [place] [address] Business (1) Within 1 to 2 days Comments: Patient is advised to follow-up with orthopedic surgery on Tuesday morning. She is also advised to come back to the emergency department if the symptoms get worse. With: Address: When: Gera Neves [address] [facility], [facility] [place] [address] Business (1) In 3 days In the event that this physician does not participate in your insurance network, please consult with your insurance company to find a nearby participating provider. Patient Education Materials: Ankle Sprain A MESSAGE TO ALL PATIENTS REGARDING OPIOIDS PRESCRIPTION OPIOIDS: WHAT YOU NEED TO KNOW Prescription opioids can be used to help relieve orfqbwuk-hf-zthldj pain and are often prescribed following a surgery or injury, or for certain health conditions. These medications can be an important part of the treatment but also come with serious risks. It is important to work with your healthcare provider to make sure you are getting the safest, most effective care. WHAT ARE THE RISKS AND SIDE EFFECTS OF OPIOID USE? Prescription opioids carry serious risks of addiction and overdose, especially with prolonged use. An opioid overdose, often marked by slowed breathing, can cause sudden . The use of prescription opioids can have a number of side effects as well, even when taken as directed: ? Tolerance?meaning you might need to take more of the medication for the same pain relief ? Physical dependence?meaning you have symptoms of withdrawal when a medication is stopped ? Increased sensitivity to pain ? Constipation ? Nausea, vomiting, and dry mouth ? Sleepiness and dizziness ? Confusion ? Depression ? Low levels of testosterone that can result in lower sex drive, energy, and strength ? Itching and sweating RISKS ARE GREATER WITH: ? History of drug misuse, substance use disorder, or overdose ? Mental health conditions (such as depression or anxiety) ? Sleep apnea ? Older age (65 years and older) ? Avoid alcohol while taking prescription opioids. Also, unless specifically advised by your health care provider, medications to avoid include: ? Benzodiazepines (such as Xanax or Valium) ? Muscle relaxants (such as Soma or Flexeril) ? Hypnotics (such as Ambien or Lunesta) ? Other prescription opioids KNOW YOUR OPTIONS Talk to your health care provider about ways to manage your pain that don?t involve prescription opioids. Some of these options may actually work better and have fewer risks and side effects. Options may include: ? Pain relievers such as acetaminophen, ibuprofen, and naproxen ? Some medication that are also used for depression or seizures ? Physical therapy and exercise ? Cognitive behavioral therapy, a psychological, goal-directed approach, in which patients learn how to modify physical, behavioral, and emotional triggers of pain and stress. IF YOU ARE PRESCRIBED OPIOIDS FOR PAIN: ? Never take opioids in greater amounts or more often than prescribed. ? Follow up with your primary health care provider. o Work together to create a plan on how to manage your pain. o Talk about ways to help manage your pain that don?t involve prescription opioids. o Talk about any and all concerns and side effects. ? Help prevent misuse and abuse o Never sell or share prescription opioids. o Never use another person?s prescription opioids. ? Store prescription opioids in a secure place and out of reach of others (this may include visitors, children, friends, and family). ? Safely dispose of unused prescription opioids: Find your community drug take-back program or your pharmacy mail-back program, or flush them down the toilet, following guidance from the Food and Drug Administration (www.fda.gov/Drugs/Reso urcesForYou). ? Vi (more content not included)... [facility] Vaccinationson 11-15-2020 Vaccinations [id number] CD:127 [facility] XR Ankle 3+ Views Lefton XR Ankle 3+ Views Left Exam Date/Time: 11/15/2020 01:46 EDT Reason for Exam: Pain Report IMPRESSION: PROBABLE PUNCTATE MILDLY DISPLACED AVULSION FRACTURE FROM THE LATERAL MALLEOLUS. SOFT TISSUE SWELLING. EXAM: XR Ankle 3+ Views Left, XR Tib/Fib Left 2 View DATE: 11/15/2020 CLINICAL HISTORY: Pain and swelling after falling down stairs. COMPARISON: None available. TECHNIQUE: AP, mediolateral, medial and external oblique radiographs of the left ankle, and AP and lateral radiographs of the left tibia and fibula were obtained. FINDINGS: Soft tissue swelling is noted, predominantly of the lateral ankle. An approximately 1 to 2 mm calcification adjacent to the lateral malleolus is probably a very small mildly displaced avulsion fracture. There is no other fracture, dislocation, worrisome bone destruction, radiodense foreign bodies, or significant degenerative changes. The visualized joint spaces and ankle mortise are intact. FINAL REPORT Dictated: 11/15/2020 5:02 am Ricky Hidalgo MD Signed (Electronic Signature): 11/15/2020 5:02 am Signed by: Ricky Hidalgo MD Transcribed by: FOUZIA Technologist: TOMMY Lopez Read 11/15/2020 05:02 am EDT, Ricky Hidalgo MD, DISAGREE PROBABLE PUNCTATE MILDLY DISPLACED AVULSION FRACTURE FROM THE LATERAL MALLEOLUS. [facility] XR Tib/Fib Left 2 Viewon XR Tib/Fib Left 2 View Exam Date/Time: 11/15/2020 01:46 EDT Reason for Exam: Pain, Traumatic Report PLEASE SEE XR Ankle 3+ Views Left REPORT DATED: 11/15/2020. FINAL REPORT Dictated: 11/15/2020 5:01 am Ricky Hidalgo MD Signed (Electronic Signature): 11/15/2020 5:01 am Signed by: Ricky Hidalgo MD Transcribed by: FOUZIA Technologist: TOMMY Lopez Read 11/15/2020 05:02 am EDT, Ricky Hidalgo MD, DISAGREE PROBABLE PUNCTATE MILDLY DISPLACED AVULSION FRACTURE FROM THE LATERAL MALLEOLUS. [facility] Vital Signs Date Time Vital Sign Value Performing Clinician Facility 06-03-2022 15:08-0500 Diastolic blood pressure 63 mm[Hg] MD Gera Neves Work Phone: [facility] 06-03-2022 15:08-0500 Heart rate 63 /min MD Gera Neves Work Phone: [facility] 06-03-2022 15:08-0500 Respiratory rate 16 /min MD Gera Neves Work Phone: [facility] 06-03-2022 15:08-0500 SaO2% (BldA) [Mass fraction] 99 % MD Gera Neves Work Phone: [facility] 06-03-2022 15:08-0500 Systolic blood pressure 107 mm[Hg] MD Gera Neves Work Phone: [facility] 06-03-2022 13:46-0500 Body temperature 97.2 [degF] MD Gera Neves Work Phone: [facility] 06-03-2022 13:16-0500 Inhaled oxygen flow rate 8 L/min MD Gera Neves Work Phone: [facility] 06-03-2022 07:23-0500 Body height 165.1 cm MD Gera Neves Work Phone: [facility] 06-03-2022 07:23-0500 Body mass index (BMI) [Ratio] 27.9 kg/m2 MD Gera Neves Work Phone: [facility] 06-03-2022 07:23-0500 Body weight 76.2 kg MD Gera Neves Work Phone: [facility] 09-06-2021 16:23-0400 Diastolic blood pressure 77 mm[Hg] [facility] 09-06-2021 16:23-0400 Heart rate 88 /min [facility] 09-06-2021 16:23-0400 Mean blood pressure 89 mm[Hg] [facility] 09-06-2021 16:23-0400 Respiratory rate 16 /min [facility] 09-06-2021 16:23-0400 SaO2% (BldA) [Mass fraction] 98 % [facility] 09-06-2021 16:23-0400 Systolic blood pressure 114 mm[Hg] [facility] 09-06-2021 15:18-0400 Diastolic blood pressure 68 mm[Hg] [facility] 09-06-2021 15:18-0400 Heart rate 72 /min [facility] 09-06-2021 15:18-0400 Mean blood pressure 83 mm[Hg] [facility] 09-06-2021 15:18-0400 SaO2% (BldA) [Mass fraction] 100 % [facility] 09-06-2021 15:18-0400 Systolic blood pressure 114 mm[Hg] [facility] 09-06-2021 14:15-0400 Body temperature 98.24 [degF] [facility] 09-06-2021 14:15-0400 Diastolic blood pressure 72 mm[Hg] [facility] 09-06-2021 14:15-0400 Heart rate 76 /min [facility] 09-06-2021 14:15-0400 Respiratory rate 16 /min [facility] 09-06-2021 14:15-0400 SaO2% (BldA) [Mass fraction] 99 % [facility] 09-06-2021 14:15-0400 Systolic blood pressure 118 mm[Hg] [facility] 09-06-2021 13:56-0400 Body temperature 98.06 [degF] [facility] 09-06-2021 13:56-0400 Heart rate 90 /min [facility] 09-06-2021 13:56-0400 Respiratory rate 16 /min [facility] Encounters Encounter Date Encounter Type Care Provider Facility Start: 07-28-2023 End: 07-28-2023 ambulatory Ronald Alcazar Facility:[facility] Start: 06-03-2022 End: 06-03-2022 Admission to same day surgery center MD Gera Neves Work Phone: [facility] Start: 06-03-2022 End: 06-03-2022 ambulatory MD Gera Neves Work Phone: [place] Work Phone: Start: 06-01-2022 End: 06-01-2022 ambulatory MD Gera Neves Work Phone: [place] Work Phone: Start: 06-01-2022 End: 06-01-2022 Patient encounter procedure MD Gera Neves Work Phone: [facility] Work Phone: Start: 10-30-2021 End: 10-31-[address] GERA NEVES Facility: Start: 09-06-2021 End: 09-06-2021 Emergency department patient visit [facility] Start: 08-07-2021 End: 08-07-[address] GERA NEVES Facility:[facility] Start: 05-20-2021 End: 08-29-[address] GERA NEVES Facility:[facility] Start: 01-09-2021 End: 04-20-[address] GERA NEVES Facility:[facility] Start: 12-03-2020 End: 12-04-[address] GERA NEVES Facility:[facility] Procedures Date Procedure Procedure Detail Performing Clinician Start: 06-03-2022 Abdominoplasty MD Estevan Neves Work Phone: Start: 06-01-2022 SARS Antigen (LFIA) MD Gera Neves Work Phone: x 2 Garylm Ramosnerissa section Augustus Jiang chuck Plan of Treatment Date Care Activity Detail Author Start: 06-03-2022 [facility] Start: 06-03-2022 [facility] Patient referral [facility] Work Phone: Immunizations Immunization Date Immunization Notes Care Provider Fa [facility] 11-15-2020 tetanus toxoid, redu peggy diphtheria toxoid, and acellular pertussis vaccine, adsorbed; Translations: [Boostrix (Tdap)] [facility] 05-04-2014 tetanus toxoid, redu peggy diphtheria toxoid, and acellular pertussis vaccine, adsorbed [facility] Payers Date Payer Category Payer Unknown [id number] 07.15.83 [id number] 1986 Unknown [id number] 07.15.83 [id number] 1986 Unknown [id number] 07.15.83 [id number] 1986 Unknown [id number] 07.15.83 [id number] 1986 Unknown [id number] 07.15.83 [id number] 1959 Self-pay 1958 Unknown [id number] 1959 Unknown [id number] Medicaid [facility] [id number] Unknown Regular Insurance [id number] Unknown [id number] Social History Date Type Detail Facility Start: 09-06-2021 End: 06-03-2022 Tobacco smoking status Never smoked tobacco (finding) [facility] Sex Assigned At Female [facility] Start: 1985 Sex Assigned At Female F [facility] Goals Date Patient Goal Desired Activity /State Hospital Discharge instructions 09-06-2021 Note Date & Type Note Facility 09-06-2021 Hospital Discharg e instructions Patient Education 09/06/2021 16:25:32 Head Injury, Adult Head Injury, Adult There are many types of head injuries. Head injuries can be as minor as a bump, or they can be a serious medical issue. More severe head injuries include: A jarring injury to the brain (concussion). A bruise (contusion) of the brain. This means there is bleeding in the brain that can cause swelling. A cracked skull (skull fracture). Bleeding in the brain that collects, clots, and forms a bump (hematoma). After a head injury, most problems occur within the first 24 hours, but side effects may occur up to 7 10 days after the injury. It is important to watch your condition for any changes. You may need to be observed in the emergency department or urgent care, or you may be admitted to the hospital. What are the causes? There are many possible causes of a head injury. A serious head injury may be caused by a car accident, bicycle or motorcycle accidents, sports injuries, and falls. What are the symptoms? Symptoms of a head injury include a contusion, bump, or bleeding at the site of the injury. Other physical symptoms may include: Headache. Nausea or vomiting. Dizziness. Feeling tired. Being uncomfortable around bright lights or loud noises. Seizures. Trouble being awakened. Fainting. Mental or emotional symptoms may include: Irritability. Confusion and memory problems. Poor attention and concentration. Changes in eating or sleeping habits. Anxiety or depression. How is this diagnosed? This condition can usually be diagnosed based on your symptoms, a description of the injury, and a physical exam. You may also have imaging tests done, such as a CT scan or MRI. How is this treated? Treatment for this condition depends on the severity and type of injury you have. The main goal of treatment is to prevent complications and to allow the brain time to heal. Mild head injury If you have a mild head injury, you may be sent home and treatment may include: Observation. A responsible adult should stay with you for 24 hours after your injury and check on you often. Physical rest. Brain rest. Pain medicines. Severe head injury If you have a severe head injury, treatment may include: Close observation. This includes hospitalization with frequent physical exams. Medicines to relieve pain, prevent seizures, and decrease brain swelling. Breathing support. This may include using a ventilator. Treatments to manage the swelling inside the brain. Brain surgery. This may be needed to: ?Remove a blood clot. ?Stop the bleeding. ?Remove a part of the skull to allow room for the brain to swell. Follow these instructions at home: Activity Rest and avoid activities that are physically hard or tiring. Make sure you get enough sleep. Limit activities that require a lot of thought or attention, such as: ?Watching TV. ?Playing memory games and puzzles. ?Job-related work or homework. ?Working on the computer, using social media, and texting. Avoid activities that could cause another head injury, such as playing sports, until your health care provider approves. Having another head injury, especially before the first one has healed, can be dangerous. Ask your health care provider when it is safe for you to return to your regular activities, including work or school. Ask your health care provider for a uupo-ja-seap plan for gradually returning to activities. Ask your health care provider when you can drive, ride a bicycle, or use heavy machinery. Your ability to react may be slower after a brain injury. Do not do these activities if you are dizzy. Lifestyle Do not drink alcohol until your health care provider approves. Do not use drugs. Alcohol and certain drugs may slow your recovery and can put you at risk of further injury. If it is harder than usual to remember things, write them down. If you are easily distracted, try to do one thing at a time. Talk with family members or close friends when making important decisions. Tell your friends, family, a trusted colleague, and tnt powder worker about your injury, symptoms, and restrictions. Have them watch for any new or worsening problems. General instructions Take ljlx-qzq-jnvhvxk and prescription medicines only as told by your health care provider. Have someone stay with you for 24 hours after your head injury. This person should watch you for any changes in your symptoms and be ready to seek medical help. Keep all follow-up visits as told by your health care provider. This is important. How is this prevented? Work on improving your balance and strength to avoid falls. Wear a seatbelt when you are in a moving vehicle. Wear a helmet when riding a bicycle, skiing, or doing any other sport or activity that has a risk of injury. If you drink alcohol: ?Limit how much you use to: ?0 1 drink a day for women. ?0 2 drinks a day for men. ?Be aware of how much alcohol is in your drink. In the [place] one drink equals one 12 oz bottle of beer (355 mL), one 5 oz glass of wine (148 mL), or one 1 oz glass of hard liquor (44 mL). Take safety measures in your home, such as: ?Removing clutter and tripping hazards from floors and stairways. ?Using grab bars in bathrooms and handrails by stairs. ?Placing non-slip mats on floors and in bathtubs. ?Improving lighting in dim areas. Get help right away if: You have: ?A severe headache that is not helped by medicine. ?Trouble walking or weakness in your arms and legs. ?Clear or bloody fluid coming from your nose or ears. ?Changes in your vision. ?A seizure. You lose your balance. You vomit. Your pupils change size. Your speech is slurred. Your dizziness gets worse. You faint. You are sleepier than normal and have trouble staying awake. Your symptoms get worse. These symptoms may represent a serious problem that is an emergency. Do not wait to see if the symptoms will go away. Get medical help right away. Call your local emergency services (911 in the [place] Do not drive yourself to the hospital. Summary Head injuries can be minor or they can be a serious medical issue requiring immediate attention. Treatment for this condition depends on the severity and type of injury you have. Ask your health care provider when it is safe for you to return to your regular activities, including work or school. Head injury prevention includes wearing a seat belt in a motor vehicle, using a helmet on a bicycle, limiting alcohol use, and taking safety measures in your home. This information is not intended to replace advice given to you by your health care provider. Make sure you discuss any questions you have with your health care provider. Document Released: 05/16/2006 Document Revised: 06/13/2019 Document Reviewed: 06/08/2019 [employer] Patient Education 2020 Get10. Follow Up Care 09/06/2021 13:55:29 With:Gera Neves Address: [address] [place] [id number] Business (1) When:09/09/2021 16:04:53 Comments:Return to the emergency room if your headache gets worse, vomiting recurs or any new symptoms. [facility] Evaluation + Plan note 09-06-2021 Note Date & Type Note Facility 09-06-2021 Evaluation + Plan note Extrac crsitian from: Title:ED Note Author:Dione MS III, Syd Alvarez e:09/06/21 1. Headache (R51.9: Headache , unspecified) 2. Closed head injury (S09.90XA: Unspecified injury of head, initial encounter) Orders: diphenhydrAMINE, 25 mg = 0.5 mL, Injection, IV Push, Once, Stop date 09/06/21 14:49:00 EDT, STAT, Start date 09/06/21 14:49:00 EDT, 09/06/21 14:49:00 EDT ketorolac, 30 mg = 1 mL, Injection, IV Push, Once, Stop date 09/06/21 14:49:00 EDT, STAT, Start date 09/06/21 14:49:00 EDT, 09/06/21 14:49:00 EDT metoclopramide, 10 mg = 2 mL, Injection, IV Push, Once, Stop date 09/06/21 14:49:00 EDT, STAT, Start date 09/06/21 14:49:00 EDT, 09/06/21 14:49:00 EDT Sodium Chloride 0.9% intravenous solution, 1,000 mL, Soln-IV, IV, Once, Stop date 09/06/21 14:48:00 EDT, STAT, Start date 09/06/21 14:48:00 EDT, Infuse over 61, minute(s) Sodium Chloride 0.9% intravenous solution, Soln-IV, Misc, Once, Stop date 09/06/21 14:54:10 EDT, Physician Stop, 09/06/21 14:54:[address] Head or Brain w/o Contrast [facility] Clinical Note 12-03-2020 Note Date & Type Note Facility 12-03-2020 Note PROCEDURE: XR HIP LT 2 3V W PELVIS COMPARISON: None. HISTORY: Pain of left hip joint FINDINGS: BONES:No fracture, acute abnormality, or significant arthropathy. SOFT TISSUES:Negative. No visible soft tissue swelling. EFFUSION:None visible. OTHER: IUD projects over the mid pelvis. IMPRESSION: No acute abnormality Electronically authenticated by: RAF MITCHELL Date: 2020-12-03 11:57 The Evaluation note Note Date & Type Note Facility [facility] note [facility] Hospital course Narrative Note Date & Type Note Facility Hospital course Narrative No data available for this section [facility] Hospital Discharge instructions Note Date & Type Note Facility Hospital Discharge instructions Additional Instructions DISCHARGE INSTRUCTIONS FOR PLASTIC/RECONSTRUCTIVE SURGERY YOUR ACTIVITY MAY INCLUDE -Going up and down stairs slowly. -Walking around the house or outside if the weather is satisfactory. -No driving until you are seen in our office and cleared for driving. -No lifting more than 10 pounds for 4 weeks from the date of surgery. WOUND CARE -NO smoking as it may compromise your wound healing. -Do not remove dressing until your post-operative appointment. -A garment was placed at the time surgery, leave in place until your post-operative appointment. - - -Keep your incision dry for 48 hours then, you may shower (no tub baths) and allow water to flow over your incision. - -It is common to feel pulling or sharp sticking sensations in the area of the incision. PLEASE NOTIFY OUR OFFICE at [phone] if you: -Develop a fever of 101 degrees Fahrenheit, or higher. -Have increasing pain. -See redness or swelling around the incision. MEDICATION -Medications per Medication Reconciliation List. -Over the counter medications such as Acetaminophen and others may be used as directed for pain unless prescription was provided. Do NOT exceed 4 grams of Acetaminophen in a 24 hour period. -DO NOT use ibuprofen or NSAIDs unless directed by physician, as they may increase risk of bleeding. OTHER INSTRUCTIONS -No smoking as this increases post-operative complication rate. FOLLOW UP -Call the office at [phone] for a follow up appointment 1 week. * AFTER HOURS PHONE NUMBER [phone] * [place] Work Phone: Summary Purpose Family History No Family History Records Found Relationship Condition Age at Onset Recorded Date/T luke family member Malignant neoplasm of breast Unknown grandparent Diabetes mellitus Unknown Advance Directives No Advanced Directives Records Found Advance Directive Response Recorded Date/ Time Advance Directives No January 13, 2021 12:09pm Chief Complaint and Reason for Visit Chief Complaint Cosmetic Chief Complaint Cosmetic Cosmetic Additional Source Comments INFORMATION SOURCE (unrecogn ized section and content) DATE CREATED AUTHOR 09/14/2021 Beltran Gordon [facility] DATE CREATED AUTHOR AUTHOR'S ORGANIZ ATION 11/06/2021 [facility] DATE CREATED AUTHOR AUTHOR'S ORGANIZ ATION 08/09/2023 [facility] Care Teams (unrecognized sec tion and content) Team Status: Inactive Member Role Status Dates Gera Neves MD Primary Care Provider Active Agustin Kim MD Attending Provider Active Team Status: Active Member Role Status Dates Gera Neves MD Primary Care Provider Active Goals (unrecognized section and content) Goals may be documented in a n alternate section FOR RECORDS PERTAINING TO PATIENTS WHO ARE OR HAVE BEEN ENROLLED IN A CHEMICAL DEPENDENCY/SUBSTANCEABUSE PROGRAM, SOME INFORMATION MAY BE OMITTED. This clinical summary was aggregated from multiple sources. Caution should be exercised in using it in the provision of clinical care. This summary normalizes information from multiple sources, and as a consequence, information in this document may materially change the coding, format and clinical context of patient data. In addition, data may be omitted in some cases. CLINICAL DECISIONS SHOULD BE BASED ON THE PRIMARY CLINICAL RECORDS. [facility] [employer] [facility]. provides no warranty or guarantee of the accuracy or completeness of information in this document.
[2023-10-20 14:11] LABS: Basophils Percent Auto 0.6 % (0.2-2.0); Eosinophils Absolute Auto 0.1 10^3/uL (0.0-0.7); Eosinophils Percent Auto 2.2 % (0.9-7.0); Hematocrit 39.4 % (36.0-48.0); Hemoglobin 13.1 g/dL (12.0-16.0); Immature Granulocytes Abs Auto 0.01 10^3/uL (0.00-0.03); Immature Granulocytes Pct Auto 0.2 % (0.0-0.5); Lymphocytes Absolute Auto 2.1 10^3/uL (1.2-3.8); Lymphocytes Percent Auto 37.9 % (20.5-60.0); Mean Corpuscular HGB Conc 33.2 g/dL (29.9-35.2); Mean Corpuscular Hemoglobin 30.9 pg (26.7-34.0); Mean Corpuscular Volume 92.9 fL (81.0-99.0); Mean Platelet Volume 10.3 fL (9.5-13.5); Monocytes Absolute Auto 0.4 10^3/uL (0.3-0.8); Monocytes Percent Auto 7.9 % (1.7-12.0); Neutrophils Absolute Auto 2.8 10^3/uL (1.4-6.5); Neutrophils Percent Auto 51.2 % (43.0-75.0); Platelet Count 241 10^3/uL (150-450); Red Blood Count 4.24 10^6/uL (4.20-5.40); Red Cell Distribution Width 11.5 % (11.0-15.0); White Blood Count 5.4 10^3/uL (4.0-11.0)
[2023-10-20 15:12] LABS: C. Difficile PCR POSITIVE (NEGATIVE)
[2023-10-20 15:17] LABS: Alanine Aminotransferase 19 U/L (14-59); Albumin Globulin Ratio 1.2; Alkaline Phosphatase 49 U/L (46-116); Anion Gap 14.9; Aspartate Amino Transferase 15 U/L (15-37); BUN Creatinine Ratio 11.4; Bilirubin Total 0.8 mg/dL (0.2-1.0); Calcium 9.4 mg/dL (8.5-10.1); Carbon Dioxide 25.9 mmol/L (21.0-32.0); Chloride 101 mmol/L (98-107); Estimated GFR (African America >60 (>=60); Estimated GFR (Non-African Ame >60 (>=60); Globulin 3.4 g/dL; Glucose 79 mg/dL (74-106); Potassium 3.8 mmol/L (3.5-5.1); Sodium 138 mmol/L (136-145); Total Protein 7.4 g/dL (6.4-8.2)
== END 2023-10-20 13:43 | disposition home or self-care (01) ==
LOC: LAB 13:44
PROVIDERS: PCP Family Medicine; Visit Provider Family Medicine
DX: R19.7 Diarrhea, unspecified (principal)
CPT/HCPCS: 36415; 80053; 85025; 87045; 87046; 87427; 87493

== ENCOUNTER 2024-06-12 09:25 | Outpatient (OUT) | payer OTHER, SELFPAY ==
--- NOTE | 2024-06-12 09:27 | MM_ITS ---
Patient Name: KAMAR CONDON MR#: [id number] : 1985 Exam Date: 06/12/2024 Ordering Doctor: DR Gera Neves . RADIOLOGY REPORT PROCEDURE: MM TOMOSYNTHESIS SCREENING BI COMPARISON: None. INDICATIONS: Screening Calculator Name NCI Breast Cancer Risk Assessment Tool 5 Year Breast Cancer Risk 0.30% Lifetime Breast Cancer Risk 6.80% Personal Breast Cancer No Personal Ovarian Cancer No Treatments None Family Cancers None LOCATION: [facility] BREAST COMPOSITION: The breasts are extremely dense, which lowers the sensitivity of mammography. FINDINGS: DIAGNOSTIC CATEGORY 1--NEGATIVE. RIGHT BREAST: No significant suspicious finding. LEFT BREAST: No significant suspicious finding. RECOMMENDATIONS: ROUTINE MAMMOGRAM AND CLINICAL EVALUATION IN 12 MONTHS. PLEASE NOTE: A NORMAL MAMMOGRAM DOES NOT EXCLUDE THE POSSIBILITY OF BREAST CANCER. A CLINICALLY SUSPICIOUS PALPABLE LUMP SHOULD BE BIOPSIED. Dictated by: Pola Mendez M.D. on 06/12/2024 at 15:49 Approved by: Pola Mendez M.D. on 06/12/2024 at 15:51
== END 2024-06-12 09:26 | disposition home or self-care (01) ==
LOC: MAMMO 09:25
PROVIDERS: PCP Family Medicine; Visit Provider Family Medicine
DX: Z00.00 Encounter for general adult medical examination without abnormal findings (principal); Z12.31 Encounter for screening mammogram for malignant neoplasm of breast
CPT/HCPCS: 77063; 77067

== ENCOUNTER 2024-09-27 08:07 | Outpatient (OUT) | payer OTHER, SELFPAY ==
[2024-09-27 08:32] LABS: Basophils Percent Auto 0.5 % (0.2-2.0); Eosinophils Absolute Auto 0.2 10^3/uL (0.0-0.7); Eosinophils Percent Auto 3.6 % (0.9-7.0); Hematocrit 40.1 % (36.0-48.0); Hemoglobin 13.3 g/dL (12.0-16.0); Immature Granulocytes Abs Auto 0.01 10^3/uL (0.00-0.03); Immature Granulocytes Pct Auto 0.2 % (0.0-0.5); Lymphocytes Absolute Auto 1.8 10^3/uL (1.2-3.8); Lymphocytes Percent Auto 33.2 % (20.5-60.0); Mean Corpuscular HGB Conc 33.2 g/dL (29.9-35.2); Mean Corpuscular Hemoglobin 31.9 pg (26.7-34.0); Mean Corpuscular Volume 96.2 fL (81.0-99.0); Mean Platelet Volume 10.6 fL (9.5-13.5); Monocytes Absolute Auto 0.4 10^3/uL (0.3-0.8); Neutrophils Percent Auto 54.5 % (43.0-75.0); Platelet Count 260 10^3/uL (150-450); Red Blood Count 4.17 10^6/uL (4.20-5.40); Red Cell Distribution Width 11.9 % (11.0-15.0); White Blood Count 5.5 10^3/uL (4.0-11.0)
[2024-09-27 08:45] LABS: Erythrocyte Sedimentation Rate 2 mm/hr (<=20)
[2024-09-27 09:29] LABS: Alanine Aminotransferase 15 U/L (14-59); Albumin Globulin Ratio 1.3; Albumin Level 3.7 g/dL (3.4-5.0); Alkaline Phosphatase 47 U/L (46-116); Anion Gap 11.8; Aspartate Amino Transferase 13 U/L (15-37); Bilirubin Total 0.2 mg/dL (0.2-1.0); Calcium 8.8 mg/dL (8.5-10.1); Carbon Dioxide 28.1 mmol/L (21.0-32.0); Chloride 107 mmol/L (98-107); Chol HDL Ratio 2.6; Cholesterol 156 mg/dL (<=200); Estimated GFR (African America >60 (>=60 mL/min/1.73m^2); Estimated GFR (Non-African Ame >60 (>=60 mL/min/1.73m^2); Free T3 2.57 pg/mL (2.18-3.98); Globulin 2.9 g/dL; Glucose 123 mg/dL (74-106); HDL Cholesterol 61 mg/dL (40-60); Potassium 3.9 mmol/L (3.5-5.1); Sodium 143 mmol/L (136-145); Thyroid Stimulating Hormone 3.173 uIU/mL (0.358-3.740); Total Protein 6.6 g/dL (6.4-8.2); Triglycerides 68 mg/dL (<=150); Uric Acid 2.2 mg/dL (2.6-6.0); VLDL CHOLESTEROL 13.6 mg/dL
[2024-09-27 09:59] LABS: C Reactive Protein <0.50 mg/dL (<=0.50)
[2024-09-27 12:16] LABS: Estimated Average Glucose 97 mg/dL
[2024-09-28 04:07] LABS: Antistreptolysin O Ab 75.7 IU/mL (0.0-200.0)
[2024-09-28 06:07] LABS: Insulin 27.4 uIU/mL (2.6-24.9)
[2024-09-28 16:09] LABS: Thyroglobulin Antibody <1.0 IU/mL (0.0-0.9); Thyroid Peroxidase (TPO) Ab <9 IU/mL (0-34)
[2024-09-28 18:09] LABS: Antinuclear Antibodies, IFA Positive (.)
== END 2024-09-27 08:08 | disposition home or self-care (01) ==
LOC: LAB 08:09
PROVIDERS: PCP Family Medicine; Visit Provider Family Medicine
DX: Z00.00 Encounter for general adult medical examination without abnormal findings (principal)
CPT/HCPCS: 36415; 80053; 80061; 83036; 83525; 83540; 84436; 84443; 84481; 84550; 85025; 85652; 86038; 86060; 86140; 86376; 86800